=== PATIENT | male | born 1960 | race Caucasian/White ===

== ENCOUNTER 2017-03-27 10:26 | Day surgery (SDC) | payer BC ==
[2017-03-27] MEDS ORDERED: Sodium Chloride 0.9% 1,000 ML IV SCH (10:30)
[2017-03-27] MEDS ORDERED: Sodium Chloride 0.9% 5 ML Syringe FLUSH PRN (10:30)
[2017-03-27] MEDS ORDERED: fentaNYL 100 MCG/2 ML SDV ONE (10:33)
[2017-03-27] MEDS ORDERED: Midazolam 1 MG/ML 2 ML SDV ONE (10:33)
[2017-03-27] MEDS ORDERED: Propofol 200 MG/20 ML SDV ONE ×2 (10:34→10:51)
[2017-03-27] MEDS ORDERED: fentaNYL 100 MCG/2 ML SDV IV ONE (11:33)
[2017-03-27] MEDS ORDERED: Midazolam 1 MG/ML 2 ML SDV IV ONE (11:33)
[2017-03-27] MEDS ORDERED: Propofol 200 MG/20 ML SDV IV ONE (11:33)
--- NOTE | 2017-03-27 11:36 | PCM.PN ---
- General Info Date of Service: 03/27/17 - Review of Systems Systems Review Comment:: 56 y/o male with history of Gastric Bypass has been having symptoms of rectal bleeding and is referred for colonoscopy. He has a family history of colon cancer. He is medically stable to proceed with no recent change to his health status. He has also been having some symptoms of abdominal pain and some vomiting. Abdomen soft without distnetion on exam today. I have discussed the proposed colonoscopy with the patient. He understands indications and risks and he agrees to proceed accepting risks. - Patient Data Vitals - Most Recent: Last Vital Signs Temp 97.5 F 03/27/17 10:50 Pulse 74 03/27/17 10:50 Resp 16 03/27/17 10:50 BP 138/94 H 03/27/17 10:50 Pulse Ox 94 L 03/27/17 10:50 Weight - Most Recent: 142.882 kg Lab Results Last 24 Hours: Laboratory Results - last 24 hr 03/27/17 Range/Units 10:54 POC Glucose 127 H (74-106) mg/dl Med Orders - Current: Current Medications Sodium Chloride (Normal Saline) 1,000 mls @ 50 mls/hr IV ASDIRECTED KASIA Sodium Chloride (Syrex Flush) 5 ml FLUSH Q8HR PRN PRN Reason: Keep Vein Open - Problem List Review Problem List Initiated/Reviewed/Updated: Yes - My Orders Last 24 Hours: My Active Orders 03/27/17 10:30 Blood Glucose Check, Bedside [RC] ONETIME Patient to Empty Bladder [RC] ASDIRECTED Peripheral IV Care [RC] . DIRECTED Verify Patient Consent Obtain [RC] ASDIRECTED Sodium Chloride 0.9% [Normal Saline] 1,000 ml IV ASDIRECTED Sodium Chloride 0.9% [Syrex Flush] 5 ml FLUSH Q8HR PRN Peripheral IV Insertion Adult [OM.PC] Routine 03/27/17 Breakfast Nothing Per Oral Diet [DIET] - Assessment Assessment:: Rectal bleeding Family history of colon cancer - Plan Plan:: Colonoscopy
--- NOTE | 2017-03-27 12:23 | PCM.OPNOTE ---
- General Post-Op/Procedure Note Date of Surgery/Procedure: 03/27/17 Operative Procedure(s): Colonoscopy Findings: Internal Hemorrhoids but colon otherwise normal as viewed Pre Op Diagnosis: Rectal Bleeding Post-Op Diagnosis: Hemorrhoids Anesthesia Technique: MAC Primary Surgeon: Willie Miller Pathology: none Output, Urine Amount: 0 EBL in mLs: 0 Complications: None Condition: Good
[2017-03-27] MEDS ORDERED: Iopamidol 612 MG/ML 75 ML Bottle IV ONE (14:59)
[2017-03-27] MEDS ORDERED: Sodium Chloride 0.9% 50 ML SDV FLUSH SCH (15:00)
[2017-03-27 15:28] VITALS: BP 121/83
--- NOTE | 2017-03-27 20:05 | OR ---
DATE OF SURGERY: 03/27/2017 SURGEON: Willie Miller MD OPERATING SURGEON: Willie Miller M.D. REFERRING PROVIDER: Katy Cano M.D. PREOPERATIVE DIAGNOSIS: Rectal bleeding. POSTOPERATIVE DIAGNOSIS: Internal hemorrhoids. OPERATION PERFORMED: Colonoscopy. INDICATIONS FOR SURGERY: This 56-year-old male has been having some intermittent episodes of rectal bleeding. He also has been having some abdominal pain. He is referred for colonoscopy. FINDINGS: The patient has moderate-sized internal hemorrhoids. There was a mild degree of irritation. He has those hemorrhoids, although there is no active bleeding seen at this time. His colon otherwise appears normal as visualized. His prep is less than optimal on the right side, but it was felt that adequate visualization was able to be achieved to rule out significant lesions. No polyps or other possible bleeding sites were seen. PROCEDURE: The patient was taken to the operating room. He was given intravenous sedation and with him in the left lateral decubitus position, digital rectal exam was performed showing no rectal masses. The Olympus colonoscope was inserted into the rectum. Retroflexed examination of the rectal canal was performed. The scope was then carefully advanced under direct visualization through the entire length of the colon until the cecum was reached. The cecum was able to be visualized. This did require hand pressure and moving the patient into the supine position, but with these maneuvers, cecum was able to be seen. After examining the cecum, the scope was slowly withdrawn sequentially re-examining the colonic segments until the entire colon and rectum had been fully examined. The scope was then removed, and the patient was taken from the operating room in satisfactory condition. ESTIMATED BLOOD LOSS: Zero. COMPLICATIONS: None. PROGNOSIS: Good. /[id number]/MODL
== END 2017-03-27 14:30 | disposition home or self-care (01) ==
LOC: KA.SDS 10:26
PROVIDERS: ATTEND Surgery
DX: K64.8 Other hemorrhoids (principal); F41.9 Anxiety disorder, unspecified; F32.9 Major depressive disorder, single episode, unspecified; I10 Essential (primary) hypertension; E11.9 Type 2 diabetes mellitus without complications; Z79.899 Other long term (current) drug therapy; Z79.84 Long term (current) use of oral hypoglycemic drugs; Z98.84 Bariatric surgery status; Z98.890 Other specified postprocedural states
CPT/HCPCS: 45378; 74177; 82962; J2250; J2704; J3010; J7030; Q9967

== ENCOUNTER 2020-05-26 10:03 | Inpatient (IN) | payer BC ==
[2020-05-26 10:50] LABS: ANION GAP 12.6 mmol/L (5-15); CHLORIDE,CL 98 mmol/L (98-115); SODIUM,NA 133 mmol/L (136-145)
[2020-05-26] MEDS ORDERED: Iopamidol 755 Mg/ML 100 ML Bottle IV ONE (11:56)
[2020-05-26] MEDS ORDERED: Diatrizoate Meglumine/Diatrizoate Sodium 37% 30 ML Bottle PO ONE (11:56)
[2020-05-26] MEDS: Sodium Chloride 0.9% 50 ML IV SCH ×3 (12:00→14:47)
--- NOTE | 2020-05-26 12:38 | CT ---
[id number] CT/CT Abdomen Pelvis W IV EXAM: CT Abdomen Pelvis W IV CLINICAL DATA: OTHER INJURY OF UNSPECIFIED BODY REGION, INITIAL COMPARISON STUDY: Multiple priors, most recent from May 11, 2020. FINDINGS: Lung bases are clear. Cholelithiasis. No evidence of acute cholecystitis. 16mm peripherally enhancing hypodense lesion in the posterior right hepatic lobe (series 2 image 31). This was seen on numerous examinations dating to 2013. Similar enhancement pattern is seen on examination from March 2017. Findings are most consistent with cavernous hemangioma, given its stability over the imaging interval. Postsurgical change in the ventral abdominal wall consistent with sequela of what appears to be recent hernia repair that was seen on the prior examination. Findings include edema and soft tissue emphysema in the anterior subcutaneous soft tissues and muscular abdominal wall. No evidence of abscess, viscus perforation, or other complicated features at this time. No evidence of recurrent herniation. No bowel obstruction or inflammation. Appendix is normal. IMPRESSION: Postsurgical change from ventral abdominal wall hernia repair, described in detail above. No evidence of recurrent herniation other complicated features at this time. Sedrick Ontiveros MD 05/26/20 [id number] Thank you for allowing us to participate in the care of your patient.
[2020-05-26] MEDS ORDERED: Ondansetron 4 MG Tab.DIS PO PRN (13:20)
[2020-05-26] MEDS: Ertapenem 1 GM in Sodium Chloride 0.9% 50 ML IV SCH (14:47)
[2020-05-26] MEDS ORDERED: ALPRAZolam 0.25 MG Tab PO PRN (16:01)
[2020-05-26] MEDS: oxyCODONE 5 MG Tab PO PRN (20:56)
[2020-05-26] MEDS: Triamcinolone Acetonide 0.1% Crm 15 GM Tube TOP SCH ×2 (20:57→21:02)
[2020-05-26] MEDS: amLODIPine 5 MG Tab PO SCH (21:02)
[2020-05-27] MEDS ORDERED: Acetaminophen 325 MG Tab PO PRN (02:50)
[2020-05-27] MEDS: Citalopram 20 MG Tab PO SCH (08:08)
[2020-05-27] MEDS: Multivitamins with Minerals/Iron/Folic Acid/Lycopene Tab PO SCH (08:08)
[2020-05-27] MEDS: Ferrous Sulfate 325 MG Tab PO SCH (08:08)
[2020-05-27] MEDS: Aspirin 81 MG Tab.EC PO SCH (08:08)
[2020-05-27] MEDS: Triamcinolone Acetonide 0.1% Crm 15 GM Tube TOP SCH ×3 (08:12→20:49)
[2020-05-27] MEDS: Sodium Chloride 0.9% 50 ML IV SCH (08:29)
[2020-05-27 08:30] LABS: ANION GAP 15.2 mmol/L (5-15); CHLORIDE,CL 98 mmol/L (98-115); SODIUM,NA 135 mmol/L (136-145)
[2020-05-27] MEDS: Ertapenem 1 GM in Sodium Chloride 0.9% 50 ML IV SCH (08:31)
[2020-05-27] MEDS: amLODIPine 5 MG Tab PO SCH (09:16)
[2020-05-27] MEDS: Lisinopril 10 MG Tab PO SCH (09:17)
--- NOTE | 2020-05-27 11:01 | PCM.PN ---
- General Info Date of Service: 05/27/20 Admission Dx/Problem (Free Text): Post-op wound drainage. - Review of Systems Systems Review Comment:: Oscar is seen today on inpatient rounds. He was admitted from [facility] clinic on 05/26 with drainage from his abdomen where his drain had been pulled on 05/24. He had surgery to repair a mesh failure from a ventral hernia repair on 05/17 at [facility] and was discharged on 05/19. At the time his drain was pulled on 05/24 he had 15 mL of serosanguonous fluid in his drain over the past 48 hours and so it was appropriate to remove. He notes he had very little drainage from his abdomen on 05/25 but the morning of 05/26 he went to walk with his daughters to school and noted that the bandage from the AM was soaked and "even more has drained on the drive over here". He has no fevers but has had some "hot flashes that don't last long". He has pain and is very tender around the site. He does not think the drainage smells. The are was cultured. I was able to express quite a large amount of what looked like purulent material in the clinic on 05/26. I subsequently got CBC, CMP, lactic acid as well as CT Abdomen/Pelvis to evaluated for intraabdominal abscess. CBC had a leukocytosis of 13,000 with a slight left shift. His WBC is usually around 4,000 - 5,000 at baseline. Lactic acid was negative. CMP showed an elevated bilirubin at 2.8 and he typically has a bilirubin of 1.4. He was afebrile but his BP was on the low side. He has not had much of an appetite. CT was negative for intraabdominal process. He was admitted inpatient status and was started on ertapenem 1 gram IV q 24 hours. Overnight he was hypotensive and so his amlodipine and lisinopril have been held. He states his pain is better today. He is on oxycodone 5 mg PO q 6 hours PRN for pain. He states he is still getting quite a bit of drainage. He remains afebrile. WBC improved today, no longer a left shift. Bilirubin decreased to 2.6 from 2.8. - Patient Data Vitals - Most Recent: Last Vital Signs Temp 97.8 F 05/27/20 10:53 Pulse 61 05/27/20 10:53 Resp 19 05/27/20 10:53 BP 110/70 05/27/20 10:53 Pulse Ox 96 05/27/20 10:53 Weight - Most Recent: 281 lb I&O - Last 24 Hours: Intake & Output 05/26/20 05/27/20 05/27/20 22:59 06:59 14:59 Intake Total 150 120 Balance 150 120 Lab Results Last 24 Hours: Laboratory Results - last 24 hr 05/26/20 05/26/20 05/26/20 Range/Units 10:15 11:10 13:00 WBC (5.00-10.00) 10^3/uL RBC (4.50-6.00) 10^6/uL Hgb (13.0-17.0) g/dL Hct (40.0-52.0) % MCV (82.0-92.0) fL MCH (27.0-31.0) pg MCHC (32.0-36.0) g/dL RDW (11.5-14.5) % Plt Count (150-400) 10^3/uL MPV (7.4-10.4) fL Add Manual Diff Neutrophils % (Manual) (50-70) % Lymphocytes % (Manual) (20-40) % Monocytes % (Manual) (2-8) % Eosinophils % (Manual) (1-3) % Absolute Neutrophils Lymphocytes # (Manual) Monocytes # (Manual) Eosinophils # (Manual) Sodium 133 L (136-145) mmol/L Potassium 4.1 (3.3-5.3) mmol/L Chloride 98 (98-115) mmol/L Carbon Dioxide 26.5 (21.0-32.0) mmol/L Anion Gap 12.6 (5-15) mmol/L BUN 14 (6-25) mg/dL Creatinine 1.03 (0.51-1.17) mg/dL Est Cr Clr Drug Dosing TNP Estimated GFR (MDRD) > 60 mL/min Glucose 120 H (75 - 99) mg/dL Lactic Acid 1.1 (0.4-2.0) mmol/L Calcium 8.8 (8.7-10.3) mg/dL Total Bilirubin 2.8 H (0.2-1.0) mg/dL Direct Bilirubin (0.0-0.2) mg/dL Indirect Bilirubin mg/dL AST 41 H (15-37) U/L ALT 17 (12-78) U/L Alkaline Phosphatase 81 (46-116) IU/L Total Protein 7.6 (6.4-8.2) g/dL Albumin 3.04 (3.00-4.80) g/dL Globulin Albumin/Globulin Ratio SARS CoV-2 RNA Rapid RIGOBERTO Negative (NEGATIVE) 05/27/20 05/27/20 Range/Units 07:13 07:13 WBC 9.29 (5.00-10.00) 10^3/uL RBC 3.83 L (4.50-6.00) 10^6/uL Hgb 12.2 L (13.0-17.0) g/dL Hct 35.6 L (40.0-52.0) % MCV 93.0 H (82.0-92.0) fL MCH 31.9 H (27.0-31.0) pg MCHC 34.3 (32.0-36.0) g/dL RDW 11.8 (11.5-14.5) % Plt Count 263 (150-400) 10^3/uL MPV 9.5 (7.4-10.4) fL Add Manual Diff Yes Neutrophils % (Manual) 70 (50-70) % Lymphocytes % (Manual) 16 L (20-40) % Monocytes % (Manual) 1 L (2-8) % Eosinophils % (Manual) 13 H (1-3) % Absolute Neutrophils 6.50 Lymphocytes # (Manual) 1.49 Monocytes # (Manual) 0.09 Eosinophils # (Manual) 1.21 Sodium 135 L (136-145) mmol/L Potassium 4.6 (3.3-5.3) mmol/L Chloride 98 (98-115) mmol/L Carbon Dioxide 26.4 (21.0-32.0) mmol/L Anion Gap 15.2 H (5-15) mmol/L BUN 13 (6-25) mg/dL Creatinine 0.94 (0.51-1.17) mg/dL Est Cr Clr Drug Dosing 99.59 Estimated GFR (MDRD) > 60 mL/min Glucose 100 H (75 - 99) mg/dL Lactic Acid (0.4-2.0) mmol/L Calcium 8.3 L (8.7-10.3) mg/dL Total Bilirubin 2.6 H (0.2-1.0) mg/dL Direct Bilirubin 0.8 H* (0.0-0.2) mg/dL Indirect Bilirubin 1.8 mg/dL AST 42 H (15-37) U/L ALT 17 (12-78) U/L Alkaline Phosphatase 74 (46-116) IU/L Total Protein 7.3 (6.4-8.2) g/dL Albumin 2.78 L (3.00-4.80) g/dL Globulin 4.52 Albumin/Globulin Ratio 0.61 SARS CoV-2 RNA Rapid RIGOBERTO (NEGATIVE) Anders Results Last 24 Hours: Microbiology 05/26/20 10:02 Gram Stain - Final Drainage - Abdomen Med Orders - Current: Current Medications Acetaminophen (Tylenol) 650 mg PO Q4H PRN PRN Reason: Headache/Pain Last Admin: 05/27/20 03:09 Dose: 650 mg Documented by: Alprazolam (Xanax) 0.5 mg PO DAILY PRN PRN Reason: Anxiety Amlodipine Besylate (Norvasc) 5 mg PO BID [facility] Last Admin: 05/27/20 09:16 Dose: Not Given Documented by: Aspirin (Halfprin) 81 mg PO DAILY [facility] Last Admin: 05/27/20 08:08 Dose: 81 mg Documented by: Citalopram Hydrobromide (Celexa) 40 mg PO DAILY [facility] Last Admin: 05/27/20 08:08 Dose: 40 mg Documented by: Ferrous Sulfate (Ferrous Sulfate) 325 mg PO DAILY [facility] Last Admin: 05/27/20 08:08 Dose: 325 mg Documented by: Sodium Chloride (Normal Saline) 50 mls @ 200 mls/hr IV ASDIRECTED [facility] Last Admin: 05/27/20 08:29 Dose: 200 mls/hr Documented by: Ertapenem 1 gm/ Sodium (Chloride) 50 mls @ 100 mls/hr IV DAILY [facility] Last Admin: 05/27/20 08:31 Dose: 100 mls/hr Documented by: Lisinopril (Prinivil) 10 mg PO DAILY [facility] Last Admin: 05/27/20 09:17 Dose: Not Given Documented by: Metformin HCl (Glucophage Xr) 500 mg PO DAILY [facility] Multivitamins/Minerals (Centrum) 1 tab PO DAILY [facility] Last Admin: 05/27/20 08:08 Dose: 1 tab Documented by: Ondansetron HCl (Zofran Odt) 4 mg PO Q6H PRN PRN Reason: nausea, able to take PO Oxycodone HCl (Oxycodone) 5 mg PO Q6HR PRN PRN Reason: Pain Last Admin: 05/26/20 20:56 Dose: 5 mg Documented by: Senna/Docusate Sodium (Senna Plus) 1 tab PO BID PRN PRN Reason: Constipation Triamcinolone Acetonide (Triamcinolone Acetonide 0.1% Crm) 0 gm TOP TID [facility] Last Admin: 05/27/20 08:12 Dose: 1 applic Documented by: Discontinued Medications Diatrizoate Meglum/Diatrizoate Sod (Gastrografin 37%) 30 ml PO ONETIME ONE Stop: 05/26/20 11:57 Last Admin: 05/26/20 12:41 Dose: 30 ml Documented by: Iopamidol (Isovue-370 (76%)) 100 ml IV ONETIME ONE Stop: 05/26/20 11:57 Last Admin: 05/26/20 12:41 Dose: 100 ml Documented by: - Exam General: Alert, Oriented, Cooperative, No Acute Distress Lungs: Clear to Auscultation, Normal Respiratory Effort Cardiovascular: Regular Rate, Regular Rhythm, No Murmurs GI/Abdominal Exam: Normal Bowel Sounds, Soft, Tender Extremities: No Pedal Edema Skin: Other (Rash on right upper chest is improving.) Sepsis Event Note - Evaluation Sepsis Screening Result: No Definite Risk - Focused Exam Vital Signs: Vital Signs Temp Pulse Resp BP BP Pulse Ox 05/27/20 10:53 97.8 F 61 19 110/70 96 05/27/20 09:17 104/72 05/27/20 09:16 104/72 05/27/20 06:03 97.0 F 58 L 18 108/71 94 L 05/27/20 02:58 97.4 F 69 18 105/71 92 L - Problem List Review Problem List Initiated/Reviewed/Updated: Yes - My Orders Last 24 Hours: My Active Orders 05/26/20 10:02 MISCELLANEOUS CULT [MREF] Routine 05/26/20 12:00 Sodium Chloride 0.9% [Normal Saline] 50 ml IV ASDIRECTED 05/26/20 13:20 Patient Status [ADT] Routine Oxygen Therapy [RC] PRN Up ad [place] [RC] ASDIRECTED VTE/DVT Education [RC] DAILY Vital Signs [RC] 03,07,11,15,, Docusate Sodium/Sennosides [Senna Plus] 1 tab PO BID PRN Ondansetron [Zofran ODT] 4 mg PO Q6H PRN Blood Culture x2 Reflex Set [OM.PC] Stat Resuscitation Status Routine 05/26/20 13:30 Ertapenem [INVanz] 1 gm Sodium Chloride 0.9% [Normal Saline] 50 ml IV DAILY 05/26/20 14:15 CULTURE BLOOD [BC] Stat 05/26/20 14:20 CULTURE BLOOD [BC] Stat 05/26/20 16:01 ALPRAZolam [Xanax] 0.5 mg PO DAILY PRN oxyCODONE 5 mg PO Q6HR PRN 05/26/20 Dinner [employer] Diet [DIET] 05/26/20 19:00 Triamcinolone Acetonide [Triamcinolone Acetonide 0.1% Crm] 0 gm TOP TID 05/26/20 21:00 amLODIPine [Norvasc] 5 mg PO BID 05/27/20 02:50 Acetaminophen [TylenoL] 650 mg PO Q4H PRN 05/27/20 09:00 Aspirin [Halfprin] 81 mg PO DAILY Citalopram [Celexa] 40 mg PO DAILY FA/Lycopene/Lut/MV,Ca,Iron,Min [Centrum] 1 tab PO DAILY Ferrous Sulfate 325 mg PO DAILY lisinopriL [Prinivil] 10 mg PO DAILY 05/28/20 05:11 BASIC METABOLIC PANEL,BMP [CHEM] AM CBC WITH AUTO DIFF [HEME] AM HEPATIC FUNCTION PANEL,HFP [CHEM] AM 05/28/20 13:00 metFORMIN [Glucophage XR] 500 mg PO DAILY 05/29/20 05:11 BASIC METABOLIC PANEL,BMP [CHEM] AM CBC WITH AUTO DIFF [HEME] AM HEPATIC FUNCTION PANEL,HFP [CHEM] AM 05/30/20 05:11 BASIC METABOLIC PANEL,BMP [CHEM] AM CBC WITH AUTO DIFF [HEME] AM HEPATIC FUNCTION PANEL,HFP [CHEM] AM 05/31/20 05:11 BASIC METABOLIC PANEL,BMP [CHEM] AM CBC WITH AUTO DIFF [HEME] AM HEPATIC FUNCTION PANEL,HFP [CHEM] AM - Assessment Assessment:: Post-op drainage from drain site that was pulled 05/24/2020 Leukocytosis Elevated bilirubin Post-operative abdominal pain Anxiety Depression DM type 2 HTN Hx gout Eczema Iron deficiency anemia - Plan Plan:: Post-op drainage from drain site that was pulled 05/24/2020 - Wound culture pending - Continue ertapenem 1 gram IV daily - Daily CBC Leukocytosis - Resolved - Daily CBC Elevated bilirubin - Slowly trending down - Daily hepatic panel Post-operative abdominal pain - Continue oxycodone 5 mg PO q 6 hours PRN Anxiety - Continue alprazolam 0.5 mg PO daily PRN Depression - Continue citalopram 40 mg PO daily DM type 2 - Metformin ER 500 mg PO daily on hold until 05/29 due to contrast on 05/26 - Diabetic diet HTN - BP has actually been on the low side - Hold amlodipine 5 mg PO BID - Hold lisinopril 10 mg PO daily Hx gout Eczema - Continue triamcinolone 0.1% cream topically to affected area TID PRN until resolved Iron deficiency anemia - Continue ferrous sulfate 325 mg 1 tab PO daily
[2020-05-27] MEDS: oxyCODONE 5 MG Tab PO PRN ×2 (12:32→21:26)
[2020-05-28] MEDS: Ferrous Sulfate 325 MG Tab PO SCH (08:07)
[2020-05-28] MEDS: Multivitamins with Minerals/Iron/Folic Acid/Lycopene Tab PO SCH (08:07)
[2020-05-28] MEDS: Citalopram 20 MG Tab PO SCH (08:07)
[2020-05-28] MEDS: Aspirin 81 MG Tab.EC PO SCH (08:08)
[2020-05-28 08:49] LABS: ANION GAP 15.2 mmol/L (5-15); CHLORIDE,CL 98 mmol/L (98-115); SODIUM,NA 136 mmol/L (136-145)
--- NOTE | 2020-05-28 09:12 | PCM.PN ---
- General Info Date of Service: 05/28/20 Admission Dx/Problem (Free Text): Post-op wound drainage. - Review of Systems Systems Review Comment:: Oscar is seen today on inpatient rounds. He was admitted on 05/26/2020 from clinic with drainage from the abdominal site where his drain was pulled on 05/24/2020. This area was cultured and he was started on ertapenem 1 gram IV daily. Culture result from 05/26 is growing Staph aureus on 05/27 and so vancomycin was added to his regimen. He notes his drainage is significant less from last evening and this morning. His pain is improving. His WBC has normalized with no left shift. He has remained afebrile. He had an elevated bilirubin of 2.8 at admission and this is now down to 1.8. Overall he is feeling better. Of note, CT abdomen/pelvis did not show any evidence of abscess although culture is positive. - Patient Data Vitals - Most Recent: Last Vital Signs Temp 97.1 F 05/28/20 05:58 Pulse 65 05/28/20 05:58 Resp 18 05/28/20 05:58 BP 125/73 05/28/20 05:58 Pulse Ox 94 L 05/28/20 05:58 Weight - Most Recent: 281 lb I&O - Last 24 Hours: Intake & Output 05/27/20 05/28/20 05/28/20 22:59 06:59 14:59 Intake Total 200 445 Balance 200 445 Lab Results Last 24 Hours: Laboratory Results - last 24 hr 05/28/20 05/28/20 Range/Units 07:15 07:15 WBC 6.06 (5.00-10.00) 10^3/uL RBC 3.91 L (4.50-6.00) 10^6/uL Hgb 12.2 L (13.0-17.0) g/dL Hct 35.8 L (40.0-52.0) % MCV 91.6 (82.0-92.0) fL MCH 31.2 H (27.0-31.0) pg MCHC 34.1 (32.0-36.0) g/dL RDW 11.5 (11.5-14.5) % Plt Count 295 (150-400) 10^3/uL MPV 9.1 (7.4-10.4) fL Add Manual Diff Yes Sodium 136 (136-145) mmol/L Potassium 4.5 (3.3-5.3) mmol/L Chloride 98 (98-115) mmol/L Carbon Dioxide 27.3 (21.0-32.0) mmol/L Anion Gap 15.2 H (5-15) mmol/L BUN 11 (6-25) mg/dL Creatinine 0.89 (0.51-1.17) mg/dL Est Cr Clr Drug Dosing 105.19 mL/min Estimated GFR (MDRD) > 60 mL/min Glucose 103 H (75 - 99) mg/dL Calcium 8.6 L (8.7-10.3) mg/dL Total Bilirubin 1.8 H (0.2-1.0) mg/dL Direct Bilirubin 0.5 H (0.0-0.2) mg/dL Indirect Bilirubin 1.3 mg/dL AST 45 H (15-37) U/L ALT 20 (12-78) U/L Alkaline Phosphatase 74 (46-116) IU/L Total Protein 7.2 (6.4-8.2) g/dL Albumin 2.88 L (3.00-4.80) g/dL Globulin 4.32 Albumin/Globulin Ratio 0.66 Anders Results Last 24 Hours: Microbiology 05/26/20 14:20 Aerobic Blood Culture - Preliminary Blood - Venous - Lab Draw NO GROWTH AFTER 1 DAY Anaerobic Blood Culture - Preliminary NO GROWTH AFTER 1 DAY 05/26/20 14:15 Aerobic Blood Culture - Preliminary Blood - Venous NO GROWTH AFTER 1 DAY Anaerobic Blood Culture - Preliminary NO GROWTH AFTER 1 DAY 05/26/20 10:02 Miscellaneous Reference Culture - Preliminary Drainage - Abdomen Staphylococcus Aureus Gram Stain - Final Med Orders - Current: Current Medications Acetaminophen (Tylenol) 650 mg PO Q4H PRN PRN Reason: Headache/Pain Last Admin: 05/27/20 03:09 Dose: 650 mg Documented by: Alprazolam (Xanax) 0.5 mg PO DAILY PRN PRN Reason: Anxiety Amlodipine Besylate (Norvasc) 5 mg PO BID [facility] Last Admin: 05/27/20 09:16 Dose: Not Given Documented by: Aspirin (Halfprin) 81 mg PO DAILY [facility] Last Admin: 05/28/20 08:08 Dose: 81 mg Documented by: Citalopram Hydrobromide (Celexa) 40 mg PO DAILY [facility] Last Admin: 05/28/20 08:07 Dose: 40 mg Documented by: Ferrous Sulfate (Ferrous Sulfate) 325 mg PO DAILY [facility] Last Admin: 05/28/20 08:07 Dose: 325 mg Documented by: Sodium Chloride (Normal Saline) 50 mls @ 200 mls/hr IV ASDIRECTED [facility] Last Admin: 05/27/20 08:29 Dose: 200 mls/hr Documented by: Ertapenem 1 gm/ Sodium (Chloride) 50 mls @ 100 mls/hr IV DAILY [facility] Last Admin: 05/27/20 08:31 Dose: 100 mls/hr Documented by: Vancomycin HCl 2 gm/ Sodium (Chloride) 250 mls @ 100 mls/hr IV Q12H [facility] Last Admin: 05/28/20 06:04 Dose: 100 mls/hr Documented by: Lisinopril (Prinivil) 10 mg PO DAILY [facility] Last Admin: 05/27/20 09:17 Dose: Not Given Documented by: Metformin HCl (Glucophage Xr) 500 mg PO DAILY [facility] Multivitamins/Minerals (Centrum) 1 tab PO DAILY [facility] Last Admin: 05/28/20 08:07 Dose: 1 tab Documented by: Ondansetron HCl (Zofran Odt) 4 mg PO Q6H PRN PRN Reason: nausea, able to take PO Oxycodone HCl (Oxycodone) 5 mg PO Q6HR PRN PRN Reason: Pain Last Admin: 05/27/20 21:26 Dose: 5 mg Documented by: Senna/Docusate Sodium (Senna Plus) 1 tab PO BID PRN PRN Reason: Constipation Triamcinolone Acetonide (Triamcinolone Acetonide 0.1% Crm) 0 gm TOP TID [facility] Last Admin: 05/27/20 20:49 Dose: 1 applic Documented by: Vancomycin HCl (Pharmacy To Dose - Vancomycin) 1 dose .XX DAILY [facility] Discontinued Medications Diatrizoate Meglum/Diatrizoate Sod (Gastrografin 37%) 30 ml PO ONETIME ONE Stop: 05/26/20 11:57 Last Admin: 05/26/20 12:41 Dose: 30 ml Documented by: Iopamidol (Isovue-370 (76%)) 100 ml IV ONETIME ONE Stop: 05/26/20 11:57 Last Admin: 05/26/20 12:41 Dose: 100 ml Documented by: - Exam General: Alert, Oriented, Cooperative, No Acute Distress Lungs: Clear to Auscultation, Normal Respiratory Effort Cardiovascular: Regular Rate, Regular Rhythm, No Murmurs GI/Abdominal Exam: Normal Bowel Sounds Extremities: No Pedal Edema Sepsis Event Note - Evaluation Sepsis Screening Result: No Definite Risk - Focused Exam Vital Signs: Vital Signs Temp Pulse Resp BP Pulse Ox 05/28/20 05:58 97.1 F 65 18 125/73 94 L 05/28/20 03:00 97.2 F 62 18 118/74 93 L 05/27/20 22:20 97.4 F 63 18 111/72 96 - Problem List Review Problem List Initiated/Reviewed/Updated: Yes - My Orders Last 24 Hours: My Active Orders 05/27/20 09:00 Aspirin [Halfprin] 81 mg PO DAILY Citalopram [Celexa] 40 mg PO DAILY FA/Lycopene/Lut/MV,Ca,Iron,Min [Centrum] 1 tab PO DAILY Ferrous Sulfate 325 mg PO DAILY lisinopriL [Prinivil] 10 mg PO DAILY 05/27/20 17:00 Pharmacy to Dose - Vancomycin 1 dose .XX DAILY 05/27/20 17:30 Vancomycin 2 gm Sodium Chloride 0.9% [Normal Saline] 250 ml IV Q12H 05/27/20 Dinner Regular Diet [DIET] 05/28/20 07:15 CBC WITH AUTO DIFF [HEME] AM MANUAL DIFFERENTIAL QA/NC [HEME] Routine 05/28/20 13:00 metFORMIN [Glucophage XR] 500 mg PO DAILY 05/29/20 05:11 BASIC METABOLIC PANEL,BMP [CHEM] AM CBC WITH AUTO DIFF [HEME] AM HEPATIC FUNCTION PANEL,HFP [CHEM] AM 05/29/20 17:00 VANCOMYCIN TROUGH [CHEM] Timed 05/30/20 05:11 BASIC METABOLIC PANEL,BMP [CHEM] AM CBC WITH AUTO DIFF [HEME] AM HEPATIC FUNCTION PANEL,HFP [CHEM] AM 05/31/20 05:11 BASIC METABOLIC PANEL,BMP [CHEM] AM CBC WITH AUTO DIFF [HEME] AM HEPATIC FUNCTION PANEL,HFP [CHEM] AM - Assessment Assessment:: Post-op drainage from drain site that was pulled 05/24/2020 Leukocytosis Elevated bilirubin Post-operative abdominal pain Anxiety Depression DM type 2 HTN Hx gout Eczema Iron deficiency anemia - Plan Plan:: Post-op drainage from drain site that was pulled 05/24/2020 - Wound culture growing Staph aureus (05/27) - Continue ertapenem 1 gram IV daily - Vancomycin, pharm to dose, started 05/27 - Daily CBC Leukocytosis - Resolved - Daily CBC Elevated bilirubin - Slowly trending down, 1.8 on 05/28 - Daily hepatic panel Post-operative abdominal pain - Continue oxycodone 5 mg PO q 6 hours PRN Anxiety - Continue alprazolam 0.5 mg PO daily PRN Depression - Continue citalopram 40 mg PO daily DM type 2 - Metformin ER 500 mg PO daily on hold until 05/29 due to contrast on 05/26 - Regular diet, patient declined diabetic diet HTN - BP has actually been on the low side - Hold amlodipine 5 mg PO BID - Hold lisinopril 10 mg PO daily Hx gout Eczema - Continue triamcinolone 0.1% cream topically to affected area TID PRN until resolved Iron deficiency anemia - Continue ferrous sulfate 325 mg 1 tab PO daily
[2020-05-28] MEDS: Ertapenem 1 GM in Sodium Chloride 0.9% 50 ML IV SCH (09:46)
[2020-05-28] MEDS: Triamcinolone Acetonide 0.1% Crm 15 GM Tube TOP SCH ×3 (10:00→20:25)
[2020-05-28] MEDS: Sodium Chloride 0.9% 50 ML IV SCH (10:01)
[2020-05-28] MEDS: metFORMIN 500 MG Tab.ER PO SCH (18:08)
[2020-05-29] MEDS: Ferrous Sulfate 325 MG Tab PO SCH (08:26)
[2020-05-29] MEDS: metFORMIN 500 MG Tab.ER PO SCH (08:26)
[2020-05-29] MEDS: Multivitamins with Minerals/Iron/Folic Acid/Lycopene Tab PO SCH (08:26)
[2020-05-29] MEDS: Aspirin 81 MG Tab.EC PO SCH (08:26)
[2020-05-29] MEDS: Citalopram 20 MG Tab PO SCH (08:26)
[2020-05-29] MEDS: amLODIPine 5 MG Tab PO SCH ×2 (08:27→20:48)
[2020-05-29] MEDS: Lisinopril 10 MG Tab PO SCH (08:28)
[2020-05-29] MEDS: Ertapenem 1 GM in Sodium Chloride 0.9% 50 ML IV SCH (08:28)
[2020-05-29] MEDS: Triamcinolone Acetonide 0.1% Crm 15 GM Tube TOP SCH ×2 (08:35→14:26)
[2020-05-29] MEDS: Sodium Chloride 0.9% 50 ML IV SCH (08:38)
[2020-05-29 08:39] LABS: ANION GAP 14.6 mmol/L (5-15); CHLORIDE,CL 101 mmol/L (98-115); SODIUM,NA 136 mmol/L (136-145)
--- NOTE | 2020-05-29 10:51 | PCM.PN ---
- General Info Date of Service: 05/29/20 Admission Dx/Problem (Free Text): Post-op wound drainage. - Review of Systems Systems Review Comment:: Oscar is seen today on inpatient rounds. He was admitted on 05/26/2020 from clinic with drainage from the abdominal site where his drain was pulled on 05/24/2020. This area was cultured and he was started on ertapenem 1 gram IV daily. Culture result from 05/26 is growing Staph aureus on 05/27 and so vancomycin was added to his regimen. Culture ID is back today 05/29 and it is MSSA so vancomycin will be discontinued. He notes his drainage is significant less from last evening and this morning. He states he is actually no longer h aving abdominal pain. His WBC has normalized with no left shift. He has remained afebrile. He had an elevated bilirubin of 2.8 at admission and this is now down to 1.1 Overall he is feeling better. Of note, CT abdomen/pelvis did not show any evidence of abscess although culture is positive. His appetite is improving although he does not like the food at the hospital. - Patient Data Vitals - Most Recent: Last Vital Signs Temp 96.9 F 05/29/20 06:37 Pulse 54 L 05/29/20 06:37 Resp 20 05/29/20 06:37 BP 122/74 05/29/20 08:28 Pulse Ox 95 05/29/20 06:37 Weight - Most Recent: 281 lb I&O - Last 24 Hours: Intake & Output 05/28/20 05/29/20 05/29/20 22:59 06:59 14:59 Intake Total 540 447 Balance 540 447 Lab Results Last 24 Hours: Laboratory Results - last 24 hr 05/29/20 05/29/20 Range/Units 07:23 07:23 WBC 5.77 (5.00-10.00) 10^3/uL RBC 3.87 L (4.50-6.00) 10^6/uL Hgb 12.1 L (13.0-17.0) g/dL Hct 35.3 L (40.0-52.0) % MCV 91.2 (82.0-92.0) fL MCH 31.3 H (27.0-31.0) pg MCHC 34.3 (32.0-36.0) g/dL RDW 11.5 (11.5-14.5) % Plt Count 345 (150-400) 10^3/uL MPV 9.7 (7.4-10.4) fL Add Manual Diff Yes Neutrophils % (Manual) 48 L (50-70) % Band Neutrophils % 2 L (4-12) % Lymphocytes % (Manual) 18 L (20-40) % Monocytes % (Manual) 8 (2-8) % Eosinophils % (Manual) 24 H (1-3) % Basophils % (Manual) 0 (0-1) % Absolute Neutrophils 2.77 Band Neutrophils # 0.12 Lymphocytes # (Manual) 1.04 Monocytes # (Manual) 0.46 Eosinophils # (Manual) 1.38 Sodium 136 (136-145) mmol/L Potassium 4.2 (3.3-5.3) mmol/L Chloride 101 (98-115) mmol/L Carbon Dioxide 24.6 (21.0-32.0) mmol/L Anion Gap 14.6 (5-15) mmol/L BUN 9 (6-25) mg/dL Creatinine 0.83 (0.51-1.17) mg/dL Est Cr Clr Drug Dosing 112.79 mL/min Estimated GFR (MDRD) > 60 mL/min Glucose 108 H (75 - 99) mg/dL Calcium 8.5 L (8.7-10.3) mg/dL Total Bilirubin 1.1 H (0.2-1.0) mg/dL Direct Bilirubin 0.3 H (0.0-0.2) mg/dL Indirect Bilirubin 0.8 mg/dL AST 44 H (15-37) U/L ALT 20 (12-78) U/L Alkaline Phosphatase 73 (46-116) IU/L Total Protein 7.1 (6.4-8.2) g/dL Albumin 2.87 L (3.00-4.80) g/dL Globulin 4.23 Albumin/Globulin Ratio 0.67 Anders Results Last 24 Hours: Microbiology 05/26/20 14:20 Aerobic Blood Culture - Preliminary Blood - Venous - Lab Draw NO GROWTH AFTER 2 DAYS Anaerobic Blood Culture - Preliminary NO GROWTH AFTER 2 DAYS 05/26/20 14:15 Aerobic Blood Culture - Preliminary Blood - Venous NO GROWTH AFTER 2 DAYS Anaerobic Blood Culture - Preliminary NO GROWTH AFTER 2 DAYS 05/26/20 10:02 Miscellaneous Reference Culture - Final Drainage - Abdomen Staphylococcus Aureus Gram Stain - Final Med Orders - Current: Current Medications Acetaminophen (Tylenol) 650 mg PO Q4H PRN PRN Reason: Headache/Pain Last Admin: 05/27/20 03:09 Dose: 650 mg Documented by: Alprazolam (Xanax) 0.5 mg PO DAILY PRN PRN Reason: Anxiety Amlodipine Besylate (Norvasc) 5 mg PO BID [facility] Last Admin: 05/29/20 08:27 Dose: Not Given Documented by: Aspirin (Halfprin) 81 mg PO DAILY [facility] Last Admin: 05/29/20 08:26 Dose: 81 mg Documented by: Citalopram Hydrobromide (Celexa) 40 mg PO DAILY [facility] Last Admin: 05/29/20 08:26 Dose: 40 mg Documented by: Ferrous Sulfate (Ferrous Sulfate) 325 mg PO DAILY [facility] Last Admin: 05/29/20 08:26 Dose: 325 mg Documented by: Sodium Chloride (Normal Saline) 50 mls @ 200 mls/hr IV ASDIRECTED [facility] Last Admin: 05/29/20 08:38 Dose: 200 mls/hr Documented by: Ertapenem 1 gm/ Sodium (Chloride) 50 mls @ 100 mls/hr IV DAILY [facility] Last Admin: 05/29/20 08:28 Dose: 100 mls/hr Documented by: Vancomycin HCl 2 gm/ Sodium (Chloride) 250 mls @ 100 mls/hr IV Q12H [facility] Last Admin: 05/29/20 04:40 Dose: 100 mls/hr Documented by: Lisinopril (Prinivil) 10 mg PO DAILY [facility] Last Admin: 05/29/20 08:28 Dose: Not Given Documented by: Metformin HCl (Glucophage Xr) 500 mg PO DAILY [facility] Last Admin: 05/29/20 08:26 Dose: 500 mg Documented by: Multivitamins/Minerals (Centrum) 1 tab PO DAILY [facility] Last Admin: 05/29/20 08:26 Dose: 1 tab Documented by: Ondansetron HCl (Zofran Odt) 4 mg PO Q6H PRN PRN Reason: nausea, able to take PO Oxycodone HCl (Oxycodone) 5 mg PO Q6HR PRN PRN Reason: Pain Last Admin: 05/27/20 21:26 Dose: 5 mg Documented by: Senna/Docusate Sodium (Senna Plus) 1 tab PO BID PRN PRN Reason: Constipation Triamcinolone Acetonide (Triamcinolone Acetonide 0.1% Crm) 0 gm TOP TID [facility] Last Admin: 05/29/20 08:35 Dose: Not Given Documented by: Vancomycin HCl (Pharmacy To Dose - Vancomycin) 1 dose .XX DAILY [facility] Discontinued Medications Diatrizoate Meglum/Diatrizoate Sod (Gastrografin 37%) 30 ml PO ONETIME ONE Stop: 05/26/20 11:57 Last Admin: 05/26/20 12:41 Dose: 30 ml Documented by: Iopamidol (Isovue-370 (76%)) 100 ml IV ONETIME ONE Stop: 05/26/20 11:57 Last Admin: 05/26/20 12:41 Dose: 100 ml Documented by: - Exam General: Alert, Oriented, Cooperative, No Acute Distress Lungs: Clear to Auscultation, Normal Respiratory Effort Cardiovascular: Regular Rate, Regular Rhythm, No Murmurs GI/Abdominal Exam: Normal Bowel Sounds, Soft, Non-Tender Extremities: No Pedal Edema Skin: Other (Rash on the right chest is nearly completely resolved.) Wound/Incisions: Other (Drainage improving, still mild purulent appearing drainage from the abdominal site.) Sepsis Event Note - Evaluation Sepsis Screening Result: No Definite Risk - Focused Exam Vital Signs: Vital Signs Temp Pulse Resp BP BP BP Pulse Ox 05/29/20 08:28 122/74 05/29/20 08:27 122/74 05/29/20 06:37 96.9 F 54 L 20 119/80 95 05/29/20 03:00 98.3 F 64 16 103/65 96 - Problem List Review Problem List Initiated/Reviewed/Updated: Yes - My Orders Last 24 Hours: My Active Orders 05/28/20 13:00 metFORMIN [Glucophage XR] 500 mg PO DAILY 05/29/20 17:00 VANCOMYCIN TROUGH [CHEM] Timed 05/30/20 05:11 BASIC METABOLIC PANEL,BMP [CHEM] AM CBC WITH AUTO DIFF [HEME] AM HEPATIC FUNCTION PANEL,HFP [CHEM] AM 05/31/20 05:11 BASIC METABOLIC PANEL,BMP [CHEM] AM CBC WITH AUTO DIFF [HEME] AM HEPATIC FUNCTION PANEL,HFP [CHEM] AM - Assessment Assessment:: Post-op drainage from drain site that was pulled 05/24/2020 Leukocytosis Elevated bilirubin Post-operative abdominal pain Anxiety Depression DM type 2 HTN Hx gout Eczema Iron deficiency anemia - Plan Plan:: Post-op drainage from drain site that was pulled 05/24/2020 - Wound culture growing Staph aureus (05/27), MSSA 05/29 - Continue ertapenem 1 gram IV daily - Discontinue vancomycin (received 05/27-05/29) - Daily CBC Leukocytosis - Resolved - Daily CBC Elevated bilirubin - Slowly trending down, 1.1 on 05/29 - Daily hepatic panel Post-operative abdominal pain - Continue oxycodone 5 mg PO q 6 hours PRN Anxiety - Continue alprazolam 0.5 mg PO daily PRN Depression - Continue citalopram 40 mg PO daily DM type 2 - Metformin ER 500 mg PO daily on hold until 05/29 due to contrast on 05/26 - Regular diet, patient declined diabetic diet HTN - BP has actually been on the low side - Hold amlodipine 5 mg PO BID - Hold lisinopril 10 mg PO daily Hx gout Eczema - Continue triamcinolone 0.1% cream topically to affected area TID PRN until resolved Iron deficiency anemia - Continue ferrous sulfate 325 mg 1 tab PO daily Anticipate discharge to home on 05/30 after he receives his daily ertapenem dose. He will be discharged with doxycycline 100 mg PO BID x for an additional 9 days for a total of 14 days of antibiotics.
[2020-05-29] MEDS ORDERED: Triamcinolone Acetonide 0.1% Crm 15 GM Tube TOP PRN (14:44)
[2020-05-30 05:57] VITALS: PULSE 61
[2020-05-30 08:05] LABS: CHLORIDE,CL 100 mmol/L (98-115); SODIUM,NA 138 mmol/L (136-145)
[2020-05-30] MEDS: Aspirin 81 MG Tab.EC PO SCH (08:28)
[2020-05-30] MEDS: Multivitamins with Minerals/Iron/Folic Acid/Lycopene Tab PO SCH (08:28)
[2020-05-30] MEDS: Ferrous Sulfate 325 MG Tab PO SCH (08:28)
[2020-05-30] MEDS: metFORMIN 500 MG Tab.ER PO SCH (08:28)
[2020-05-30] MEDS: Citalopram 20 MG Tab PO SCH (08:28)
[2020-05-30] MEDS: Ertapenem 1 GM in Sodium Chloride 0.9% 50 ML IV SCH (09:17)
[2020-05-30] MEDS: Lisinopril 10 MG Tab PO SCH (10:40)
[2020-05-30] MEDS: amLODIPine 5 MG Tab PO SCH (10:40)
[2020-05-30 10:41] VITALS: BP 140/94
--- NOTE | 2020-05-30 10:53 | PCM.DCSUM1 ---
Discharge Summary - Hospital Course Free Text/Narrative:: Admission Date: 05/26/2020 Discharge Date: 05/29/2020 Admission/Discharge Diagnoses: Post-op drainage from drain site that was pulled 05/24/2020 - Wound culture growing Staph aureus (05/27), MSSA 05/29 - Continue ertapenem 1 gram IV daily (05/26 - 05/29) - Discontinue vancomycin (received 05/27-05/29) - Outpatient doxycycline 100 mg PO BID for additional 9 days for total of 14 days of antibiotics - Change dressing BID or more frequently depending in amount of drainage. Leukocytosis - Resolved, Upon admission WBC was 13.95 with 75% neutrophils, discharge was 5.72 with 57% neutrophils Elevated bilirubin - Etiology unclear. Was 2.8 at admission, at discharge is normal at 0.7 Post-operative abdominal pain - Continue oxycodone 5 mg PO q 6 hours PRN - He has not required pain medication in 2 days at time of discharge Pseudohypocalcemia - Corrected calcium is 9.3 with albumin is taken into account Anxiety - Continue alprazolam 0.5 mg PO daily PRN Depression - Continue citalopram 40 mg PO daily DM type 2 - Metformin ER 500 mg PO daily was held until 05/29 due to contrast on 05/26 HTN - BP has actually been on the low side - Amlodipine 5 mg PO BID had been held but BP is back up to hypertensive range so resume at discharge - Lisinopril 10 mg PO daily had been held but will resume at discharge Hx gout Eczema - Continue triamcinolone 0.1% cream topically to affected area TID PRN, rash to right upper chest has resolved Iron deficiency anemia - Continue ferrous sulfate 325 mg 1 tab PO daily CODE STATUS: Full Code New Medication at Discharge: Doxycycline 100 mg PO BID x 9 days, this was sent through his clinic chart to [facility] to start on 05/30. Brief History: Oscar was admitted on 05/26/2020 from clinic with drainage from the abdominal site where his drain was pulled on 05/24/2020. This area was cultured and he was started on ertapenem 1 gram IV daily. Culture result from 05/26 is growing Staph aureus on 05/27 and so vancomycin was added to his regimen. Culture results showed MSSA and so vancomycin was discontinued and he was on Ertamepen alone. Of note, CT abdomen/pelvis did not show any evidence of abscess although culture is positive. He has not needed any pain medication in 2 days. Overall he is doing much better and is ready for discharge to home. Diagnosis: Stroke: No Modified [place] Scale: No Signif.Disability Despite Sympt.Able to Carry Out Usual Act./Duties Modified Joanna Scale Score: 1 - Discharge Data Discharge Date: 05/30/20 Discharge Disposition: Home, Self-Care 01 Condition: Good - Referral to Home Health Primary Care Physician: Katy Cano MD - Patient Instructions Diet: Usual Diet as Tolerated Driving: May Drive Today Showering/Bathing: May Shower Wound/Incision Care: Change Dressing Daily (Change dressing twice daily or more often if needed.) Notify Provider of: Fever, Increased Pain, Swelling and Redness - Discharge Plan *PRESCRIPTION DRUG MONITORING PROGRAM REVIEWED*: No *COPY OF PRESCRIPTION DRUG MONITORING REPORT IN PATIENT MERRY: No Prescriptions/Med Rec: Doxycycline [Vibramycin] 100 mg PO BID 9 Days #18 cap Home Medications: Home Meds Citalopram [Citalopram HBr] 40 mg PO DAILY 07/18/14 [History] amLODIPine Besylate [Amlodipine Besylate] 5 mg PO BID 07/18/14 [History] Multivitamin with Minerals [Multiple Vitamin] 1 tab PO DAILY 10/08/15 [History] ALPRAZolam [Alprazolam] 0.5 mg PO DAILY PRN 03/21/17 [History] metFORMIN [Glucophage XR] 500 mg PO DAILY 03/21/17 [History] Aspirin [Aspirin EC] 81 mg PO DAILY 05/26/20 [History] Ferrous Sulfate 325 mg PO DAILY 05/26/20 [History] Triamcinolone Acetonide [Triamcinolone Acetonide 0.1% Crm] 1 applic TOP TID PRN 05/26/20 [History] lisinopriL [Lisinopril] 10 mg PO DAILY 05/26/20 [History] oxyCODONE HCl [Oxycodone HCl] 5 mg PO Q6HR PRN 05/26/20 [History] Doxycycline [Vibramycin] 100 mg PO BID 9 Days #18 cap 05/30/20 [Rx] - Discharge Summary/Plan Comment DC Time >30 min.: No - General Info Date of Service: 05/30/20 Admission Dx/Problem (Free Text: Post-op wound drainage. - Patient Data Vitals - Most Recent: Last Vital Signs Temp 97.7 F 05/30/20 05:56 Pulse 61 05/30/20 05:56 Resp 16 05/30/20 05:56 BP 140/94 H 05/30/20 10:40 Pulse Ox 93 L 05/30/20 05:56 Weight - Most Recent: 281 lb I&O - Last 24 hours: Intake & Output 05/29/20 05/30/20 05/30/20 22:59 06:59 14:59 Intake Total 1290 500 Balance 1290 500 Lab Results - Last 24 hrs: Laboratory Results - last 24 hr 05/30/20 05/30/20 Range/Units 07:20 07:20 WBC 5.72 (5.00-10.00) 10^3/uL RBC 3.94 L (4.50-6.00) 10^6/uL Hgb 12.5 L (13.0-17.0) g/dL Hct 35.9 L (40.0-52.0) % MCV 91.1 (82.0-92.0) fL MCH 31.7 H (27.0-31.0) pg MCHC 34.8 (32.0-36.0) g/dL RDW 11.6 (11.5-14.5) % Plt Count 357 (150-400) 10^3/uL MPV 9.3 (7.4-10.4) fL Add Manual Diff Yes Neutrophils % (Manual) 57 (50-70) % Lymphocytes % (Manual) 31 (20-40) % Monocytes % (Manual) 3 (2-8) % Eosinophils % (Manual) 9 H (1-3) % Absolute Neutrophils 3.2604 Lymphocytes # (Manual) 1.7732 Monocytes # (Manual) 0.1716 Eosinophils # (Manual) 0.5148 Sodium 138 (136-145) mmol/L Potassium 4.0 (3.3-5.3) mmol/L Chloride 100 (98-115) mmol/L Carbon Dioxide 26.0 (21.0-32.0) mmol/L Anion Gap 16.0 H (5-15) mmol/L BUN 8 (6-25) mg/dL Creatinine 0.86 (0.51-1.17) mg/dL Est Cr Clr Drug Dosing 108.86 mL/min Estimated GFR (MDRD) > 60 mL/min Glucose 95 (75 - 99) mg/dL Calcium 8.5 L (8.7-10.3) mg/dL Total Bilirubin 0.7 (0.2-1.0) mg/dL Direct Bilirubin 0.2 (0.0-0.2) mg/dL Indirect Bilirubin 0.5 mg/dL AST 38 H (15-37) U/L ALT 23 (12-78) U/L Alkaline Phosphatase 76 (46-116) IU/L Total Protein 7.4 (6.4-8.2) g/dL Albumin 2.97 L (3.00-4.80) g/dL Globulin 4.43 Albumin/Globulin Ratio 0.67 SON[facility] Results - Last 24 hrs: Microbiology 05/26/20 14:20 Aerobic Blood Culture - Preliminary Blood - Venous - Lab Draw NO GROWTH AFTER 3 DAYS Anaerobic Blood Culture - Preliminary NO GROWTH AFTER 3 DAYS 05/26/20 14:15 Aerobic Blood Culture - Preliminary Blood - Venous NO GROWTH AFTER 3 DAYS Anaerobic Blood Culture - Preliminary NO GROWTH AFTER 3 DAYS Med Orders - Current: Current Medications Acetaminophen (Tylenol) 650 mg PO Q4H PRN PRN Reason: Headache/Pain Last Admin: 05/27/20 03:09 Dose: 650 mg Documented by: Alprazolam (Xanax) 0.5 mg PO DAILY PRN PRN Reason: Anxiety Amlodipine Besylate (Norvasc) 5 mg PO BID [facility] Last Admin: 05/30/20 10:40 Dose: 5 mg Documented by: Aspirin (Halfprin) 81 mg PO DAILY [facility] Last Admin: 05/30/20 08:28 Dose: 81 mg Documented by: Citalopram Hydrobromide (Celexa) 40 mg PO DAILY [facility] Last Admin: 05/30/20 08:28 Dose: 40 mg Documented by: Ferrous Sulfate (Ferrous Sulfate) 325 mg PO DAILY [facility] Last Admin: 05/30/20 08:28 Dose: 325 mg Documented by: Sodium Chloride (Normal Saline) 50 mls @ 200 mls/hr IV ASDIRECTED [facility] Last Admin: 05/29/20 08:38 Dose: 200 mls/hr Documented by: Ertapenem 1 gm/ Sodium (Chloride) 50 mls @ 100 mls/hr IV DAILY [facility] Last Admin: 05/30/20 09:17 Dose: 100 mls/hr Documented by: Lisinopril (Prinivil) 10 mg PO DAILY [facility] Last Admin: 05/30/20 10:40 Dose: 10 mg Documented by: Metformin HCl (Glucophage Xr) 500 mg PO DAILY [facility] Last Admin: 05/30/20 08:28 Dose: 500 mg Documented by: Multivitamins/Minerals (Centrum) 1 tab PO DAILY [facility] Last Admin: 05/30/20 08:28 Dose: 1 tab Documented by: Ondansetron HCl (Zofran Odt) 4 mg PO Q6H PRN PRN Reason: nausea, able to take PO Oxycodone HCl (Oxycodone) 5 mg PO Q6HR PRN PRN Reason: Pain Last Admin: 05/27/20 21:26 Dose: 5 mg Documented by: Senna/Docusate Sodium (Senna Plus) 1 tab PO BID PRN PRN Reason: Constipation Triamcinolone Acetonide (Triamcinolone Acetonide 0.1% Crm) 0 gm TOP TID PRN PRN Reason: Other Discontinued Medications Diatrizoate Meglum/Diatrizoate Sod (Gastrografin 37%) 30 ml PO ONETIME ONE Stop: 05/26/20 11:57 Last Admin: 05/26/20 12:41 Dose: 30 ml Documented by: Vancomycin HCl 2 gm/ Sodium (Chloride) 250 mls @ 100 mls/hr IV Q12H [facility] Last Admin: 05/29/20 04:40 Dose: 100 mls/hr Documented by: Iopamidol (Isovue-370 (76%)) 100 ml IV ONETIME ONE Stop: 05/26/20 11:57 Last Admin: 05/26/20 12:41 Dose: 100 ml Documented by: Triamcinolone Acetonide (Triamcinolone Acetonide 0.1% Crm) 0 gm TOP TID [facility] Last Admin: 05/29/20 14:26 Dose: Not Given Documented by: Vancomycin HCl (Pharmacy To Dose - Vancomycin) 1 dose .XX DAILY [facility] - Exam General: Reports: Alert, Oriented, Cooperative, No Acute Distress Lungs: Reports: Clear to Auscultation, Normal Respiratory Effort Cardiovascular: Reports: Regular Rate, Regular Rhythm, No Murmurs GI/Abdominal Exam: Normal Bowel Sounds, Soft, Non-Tender
== END 2020-05-30 11:45 | disposition home or self-care (01) | DRG 721 ==
LOC: KA.MS 10:03 → KA.OC 10:03 → KA.MS 12:50 → UNDOADMIN 12:50 → KA.MS 13:20
PROVIDERS: ADMIT Internal Medicine; ATTEND Internal Medicine
DX: T81.49XA Infection following a procedure, other surgical site, initial encounter (principal); E83.51 Hypocalcemia; F41.9 Anxiety disorder, unspecified; F32.9 Major depressive disorder, single episode, unspecified; R74.8 Abnormal levels of other serum enzymes; G89.18 Other acute postprocedural pain; R10.9 Unspecified abdominal pain; Z20.828 Contact with and (suspected) exposure to other viral communicable diseases; E11.9 Type 2 diabetes mellitus without complications; I10 Essential (primary) hypertension; M10.9 Gout, unspecified; D50.9 Iron deficiency anemia, unspecified; L30.9 Dermatitis, unspecified; B95.61 Methicillin susceptible Staphylococcus aureus infection as the cause of diseases classified elsewhere; Z79.899 Other long term (current) drug therapy; Z79.82 Long term (current) use of aspirin; Z79.84 Long term (current) use of oral hypoglycemic drugs
CPT/HCPCS: 36415; 74177; 80048; 80053; 80076; 83605; 85025; 87040; 87070; 87147; 87186; 87205; 99223; 99231; 99232; 99233; 99238; A9270-GY; J1335; J3370; J7050; Q9963; Q9967; U0002

== ENCOUNTER 2021-07-21 11:29 | Observation (INO) | payer BC ==
[2021-07-21] MEDS ORDERED: Sodium Chloride 0.9% 1,000 ML IV ONE ×2 (12:30→13:30)
[2021-07-21] MEDS ORDERED: Iopamidol 755 Mg/ML 100 ML Bottle IV ONE (12:52)
[2021-07-21] MEDS ORDERED: Sodium Chloride 0.9% 50 ML IV SCH (13:00)
[2021-07-21 13:21] LABS: ANION GAP 17.1 mmol/L (5-15); CHLORIDE,CL 100 mmol/L (98-107); SODIUM,NA 136 mmol/L (136-145)
[2021-07-21 13:31] LABS: HEMOGLOBIN A1C 5.6 % (4.3-5.7)
--- NOTE | 2021-07-21 14:58 | CT ---
[id number] CT/CT Abdomen Pelvis WO IV Exam: CT Abdomen Pelvis WO IV Clinical Data: SUSPECTED INFECTION COMPARISON: CORRELATION IS MADE WITH FEBRUARY 01, 2021 FINDINGS: Surgical changes of the anterior abdominal wall are seen There is no fluid collection There may be cellulitis. There are surgical changes at the level of the GE junction. The liver and spleen, kidneys and adrenals, pancreas and aorta show no acute abnormalities. The gallbladder is not distended. The pelvis shows no mass or adenopathy There is no pelvic abscess. This changing caliber of the sigmoid colon on image #120, series 2. Question raised when the patient has had a colonoscopy IMPRESSION: SURGICAL CHANGES OF ANTERIOR ABDOMINAL WALL QUESTION OF CELLULITIS AT THIS LEVEL NO DISCRETE ABSCESS QUESTION OF APPLE CORE LESION OF SIGMOID COLON Noah Anderson MD 07/21/21 [id number] Thank you for allowing us to participate in the care of your patient.
[2021-07-21] MEDS ORDERED: Ondansetron 4 MG Tab.DIS PO PRN (18:31)
[2021-07-21] MEDS ORDERED: Acetaminophen 325 MG Tab PO PRN (18:31)
[2021-07-21] MEDS ORDERED: Sodium Chloride 0.9% 10 ML Syringe FLUSH PRN (18:31)
[2021-07-21] MEDS ORDERED: traMADol 50 MG Tab PO PRN (18:42)
[2021-07-21] MEDS ORDERED: ALPRAZolam 0.25 MG Tab PO PRN (19:07)
[2021-07-21] MEDS: Sodium Chloride 0.9% 1,000 ML IV SCH (19:26)
[2021-07-21] MEDS ORDERED: Pregabalin 25 MG Cap PO SCH (21:00)
[2021-07-22] MEDS: Sodium Chloride 0.9% 1,000 ML IV SCH (03:38)
[2021-07-22 06:14] VITALS: BP 108/62; PULSE 67
[2021-07-22 07:35] LABS: ANION GAP 14.5 mmol/L (5-15)
[2021-07-22] MEDS ORDERED: Citalopram 20 MG Tab PO SCH (09:00)
--- NOTE | 2021-07-22 09:24 | PCM.HP.2 ---
H&P History of Present Illness - General Date of Service: 07/21/21 Admit Problem/Dx: Admission Diagnosis/Problem Admission Diagnosis/Problem Acute renal injury due to hypovolemia Source of Information: Patient, Old Records, Provider History Limitations: Reports: No Limitations - Related Data Allergies/Adverse Reactions: Allergies Allergy/AdvReac Type Severity Reaction Status Date / Time No Known Drug Allergies Allergy Cannot Verified 07/21/21 19:55 Remember Home Medications: Home Meds Citalopram [Citalopram HBr] 40 mg PO DAILY 07/18/14 [History] Multivitamin with Minerals [Multiple Vitamin] 1 tab PO DAILY 10/08/15 [History] ALPRAZolam [Alprazolam] 0.5 mg PO DAILY PRN 03/21/17 [History] Triamcinolone Acetonide [Triamcinolone Acetonide 0.1% Crm] 1 applic TOP TID PRN 05/26/20 [History] Hydrocodone/Acetaminophen [HYDROcodone-Acetaminophen 5-325 MG] 1 - 2 tab PO Q4H PRN 07/21/21 [History] Pregabalin [Lyrica] 150 mg PO BID 07/21/21 [History] Sulfamethoxazole/Trimethoprim [Bactrim Ds Tablet] 1 tab PO BID 07/21/21 [History] traMADol HCl [Tramadol HCl] 50 mg PO Q6H PRN 07/21/21 [History] Acetaminophen [Tylenol] 650 mg PO Q4H PRN tablet 07/22/21 [Rx] Past Medical History HEENT History: Reports: Impaired Vision Cardiovascular History: Reports: Hypertension Gastrointestinal History: Reports: GERD, Other (See Below) Other Gastrointestinal History: chronic abdominal pain Musculoskeletal History: Reports: None Psychiatric History: Reports: Anxiety Endocrine/Metabolic History: Reports: Diabetes, Type II, Obesity/BMI 30+ Hematologic History: Reports: Iron Deficiency - Infectious Disease History Infectious Disease History: Reports: Chicken Pox, Mumps - Past Surgical History HEENT Surgical History: Reports: Oral Surgery Cardiovascular Surgical History: Reports: None GI Surgical History: Reports: Bariatric Procedure, Colonoscopy, EGD, Hernia, Abdominal, Other (See Below) Endocrine Surgical History: Reports: None Musculoskeletal Surgical History: Reports: Knee Replacement Other Musculoskeletal Surgeries/Procedures:: RIGHT Social & Family History - Family History Cardiac: Reports: Bypass, Hypertension GI: Reports: Other (See Below) Other GI Family History: colon cancer, father and sister - Tobacco Use Tobacco Use Status *Q: Never Tobacco User - Caffeine Use Caffeine Use: Reports: Soda Caffeine Use Comment: 1-2 cans/day H&P Review of Systems - Review of Systems: Review Of Systems: See Below General: Reports: Weakness, Diaphoresis, Decreased Appetite. Denies: Weight Loss, Weight Gain HEENT: Reports: No Symptoms Pulmonary: Reports: No Symptoms Cardiovascular: Reports: Dyspnea on Exertion, Lightheadedness, Blood Pressure Problem. Denies: Chest Pain, Palpitations, Orthopnea, PND, Edema, Syncope, Claudication Gastrointestinal: Reports: Abdominal Pain, Anorexia, Diarrhea. Denies: Black Stool, Constipation, Difficulty Swallowing, Distension, Flatus, Melena Genitourinary: Reports: Flank Pain Musculoskeletal: Reports: No Symptoms Skin: Reports: No Symptoms Psychiatric: Reports: No Symptoms Neurological: Reports: No Symptoms Hematologic/Lymphatic: Reports: No Symptoms Exam - Exam Exam: See Below - Vital Signs Vital Signs: Last Vital Signs Temp 98.2 F 07/22/21 06:13 Pulse 67 07/22/21 06:13 Resp 14 07/22/21 06:13 BP 108/62 07/22/21 06:13 Pulse Ox 94 L 07/22/21 06:13 Orthostatic Blood Pressure [ 79/58 Standing] Orthostatic Blood Pressure [ 95/55 Sitting] Orthostatic Blood Pressure [ 104/59 Supine] Weight: 300 lb - Exam Quality Assessment: No: Supplemental Oxygen General: Alert, Oriented, Mild Distress Neck: Supple Lungs: Clear to Auscultation, Normal Respiratory Effort Cardiovascular: Regular Rate, Regular Rhythm, Normal S1, Normal S2. No: Irregular Rhythm, Tachycardia GI/Abdominal Exam: Other (low bowel tones, RLQ to R mid quant abd pain ) Rectal (Males) Exam: Deferred Back Exam: No: CVA Tenderness (L), CVA Tenderness (R) Extremities: Normal Inspection, No Pedal Edema. No: Slow Capillary Refill Peripheral Pulses: 2+: Radial (L), Radial (R) Skin: Warm, Dry Neurological: Cranial Nerves Intact, Reflexes Equal Bilateral Neuro Extensive - Mental Status: Alert, Oriented x3, Normal Mood/Affect, Normal Cognition Neuro Extensive - Motor, Sensory, Reflexes: CN II-XII Intact, Normal Gait, Normal Reflexes Psychiatric: Alert, Normal Affect, Normal Mood - Patient Data Lab Results Last 24 hrs: Laboratory Results - last 24 hr 07/21/21 07/21/21 07/21/21 Range/Units 11:50 12:51 12:51 WBC 3.49 L (5.00-10.00) 10^3/uL RBC 4.21 L (4.50-6.00) 10^6/uL Hgb 13.0 D (13.0-17.0) g/dL Hct 40.9 (40.0-52.0) % MCV 97.1 H (82.0-92.0) fL MCH 30.9 (27.0-31.0) pg MCHC 31.8 L (32.0-36.0) g/dL RDW 13.1 (11.5-14.5) % Plt Count 141 L (150-400) 10^3/uL MPV 9.6 (7.4-10.4) fL Immature Gran % (Auto) 0.3 (0.0-5.0) % Neut % (Auto) 63.8 (50.0-70.0) % Lymph % (Auto) 23.5 (20.0-40.0) % Deuel % (Auto) 9.5 H (2.0-8.0) % Eos % (Auto) 2.3 (1.0-3.0) % Baso % (Auto) 0.6 (0.0-1.0) % Neut # (Auto) 2.23 L (2.50-7.00) 10^3/uL Lymph # (Auto) 0.82 L (1.00-4.00) 10^3/uL Deuel # (Auto) 0.33 (0.10-0.80) 10^3/uL Eos # (Auto) 0.08 L (0.10-0.30) 10^3/uL Baso # (Auto) 0.02 (0.00-0.10) 10^3/uL Immature Gran # (Auto) 0.01 (0.00-0.50) 10^3/uL Sodium 136 (136-145) mmol/L Potassium 4.6 (3.5-5.1) mmol/L Chloride 100 (98-107) mmol/L Carbon Dioxide 23.5 (21.0-32.0) mmol/L Anion Gap 17.1 H (5-15) mmol/L BUN 20 H (7-18) mg/dL Creatinine 2.46 H D (0.51-1.17) mg/dL Est Cr Clr Drug Dosing TNP Estimated GFR (MDRD) 27 mL/min Glucose 138 (70-140) mg/dL Hemoglobin A1c (4.3-5.7) % Lactic Acid (0.4-2.0) mmol/L Calcium 8.5 L (8.7-10.3) mg/dL Total Bilirubin 2.3 H (0.2-1.0) mg/dL AST 88 H (15-37) U/L ALT 25 (14-63) U/L Alkaline Phosphatase 88 (46-116) U/L Total Protein 7.6 (6.4-8.2) g/dL Albumin 3.39 L (3.40-5.00) g/dL SARS CoV-2 RNA Rapid RIGOBERTO Negative (NEGATIVE) 07/21/21 07/21/21 07/22/21 Range/Units 12:51 12:51 07:05 WBC (5.00-10.00) 10^3/uL RBC (4.50-6.00) 10^6/uL Hgb (13.0-17.0) g/dL Hct (40.0-52.0) % MCV (82.0-92.0) fL MCH (27.0-31.0) pg MCHC (32.0-36.0) g/dL RDW (11.5-14.5) % Plt Count (150-400) 10^3/uL MPV (7.4-10.4) fL Immature Gran % (Auto) (0.0-5.0) % Neut % (Auto) (50.0-70.0) % Lymph % (Auto) (20.0-40.0) % Deuel % (Auto) (2.0-8.0) % Eos % (Auto) (1.0-3.0) % Baso % (Auto) (0.0-1.0) % Neut # (Auto) (2.50-7.00) 10^3/uL Lymph # (Auto) (1.00-4.00) 10^3/uL Deuel # (Auto) (0.10-0.80) 10^3/uL Eos # (Auto) (0.10-0.30) 10^3/uL Baso # (Auto) (0.00-0.10) 10^3/uL Immature Gran # (Auto) (0.00-0.50) 10^3/uL Sodium 135 L (136-145) mmol/L Potassium 4.7 (3.5-5.1) mmol/L Chloride 103 (98-107) mmol/L Carbon Dioxide 22.2 (21.0-32.0) mmol/L Anion Gap 14.5 (5-15) mmol/L BUN 16 (7-18) mg/dL Creatinine 1.45 H (0.51-1.17) mg/dL Est Cr Clr Drug Dosing 62.99 Estimated GFR (MDRD) 50 mL/min Glucose 126 (70-140) mg/dL Hemoglobin A1c 5.6 (4.3-5.7) % Lactic Acid 1.9 (0.4-2.0) mmol/L Calcium 7.9 L (8.7-10.3) mg/dL Total Bilirubin 1.9 H (0.2-1.0) mg/dL AST 86 H (15-37) U/L ALT 25 (14-63) U/L Alkaline Phosphatase 74 (46-116) U/L Total Protein 6.6 (6.4-8.2) g/dL Albumin 2.81 L (3.40-5.00) g/dL SARS CoV-2 RNA Rapid RIGOBERTO (NEGATIVE) Result Diagrams: 07/21/21 12:51 07/22/21 07:05 Sepsis Event Note - Evaluation Sepsis Screening Result: No Definite Risk - Focused Exam Vital Signs: Vital Signs Temp Pulse Resp BP BP Pulse Ox 07/22/21 06:13 98.2 F 67 14 108/62 94 L 07/21/21 22:45 97.5 F 75 14 110/66 94 L Problem List Initiated/Reviewed/Updated: Yes Orders Last 24hrs: Active Orders 24 hr Category Date Time Status Patient Status [ADT] Routine ADT 07/21/21 18:31 Active Communication Order [RC] DAILY Care 07/21/21 18:55 Active Height and Weight [RC] .PRN Care 07/21/21 18:31 Active Intake and Output [RC] 1400,2200,0600 Care 07/21/21 18:34 Active May Shower [RC] ASDIRECTED Care 07/21/21 18:31 Active Orthostatic Vital Signs [RC] ASDIRECTED Care 07/22/21 08:00 Active Oxygen Therapy [RC] PRN Care 07/21/21 18:31 Active Peripheral IV Care [RC] 0900,2100 Care 07/21/21 18:38 Active Up ad [place] [RC] ASDIRECTED Care 07/21/21 18:31 Active Up to Chair [RC] ASDIRECTED Care 07/21/21 18:31 Active Vital Signs [RC] 0700,1500,2300 Care 07/21/21 18:31 Active Regular Diet [DIET] Diet 07/21/21 Dinner Active CULTURE BLOOD [BC] Stat Lab 07/21/21 12:51 Received CULTURE BLOOD [BC] Stat Lab 07/21/21 13:20 Received PROCALCITONIN [REF] Routine Lab 07/21/21 12:51 Received ALPRAZolam [Xanax] Med 07/21/21 19:07 Active 0.5 mg PO DAILY PRN Acetaminophen [TylenoL] Med 07/21/21 18:31 Active 650 mg PO Q4H PRN Citalopram [Celexa] Med 07/22/21 09:00 Active 40 mg PO DAILY Ondansetron [Zofran ODT] Med 07/21/21 18:31 Active 4 mg PO Q4H PRN Pregabalin [Lyrica] Med 07/21/21 21:00 Hold 150 mg PO BID Sodium Chloride 0.9% [Normal Saline] 1,000 ml Med 07/21/21 19:00 Active IV ASDIRECTED Sodium Chloride 0.9% [Saline Flush] Med 07/21/21 18:31 Active 10 ml FLUSH Q8HR PRN traMADol [Ultram] Med 07/21/21 18:42 Active 50 mg PO Q6H PRN Blood Culture x2 Reflex Set [OM.PC] Stat Oth 07/21/21 12:26 Ordered Peripheral IV Insertion Adult [OM.PC] Routine Oth 07/21/21 18:31 Ordered Resuscitation Status Routine Resus Stat 07/21/21 18:31 Ordered Medication Orders Acetaminophen (Acetaminophen 325 Mg Tab) 650 mg PO Q4H PRN PRN Reason: Pain (Mild 1-3)/fever Alprazolam (Alprazolam 0.25 Mg Tab) 0.5 mg PO DAILY PRN PRN Reason: Anxiety Citalopram Hydrobromide (Citalopram 20 Mg Tab) 40 mg PO DAILY [facility] Sodium Chloride (Normal Saline) 1,000 mls @ 125 mls/hr IV ASDIRECTED [facility] Last Admin: 07/22/21 03:38 Dose: 125 mls/hr Documented by: Infusion: 07/22/21 03:26 Dose: 125 mls/hr Documented by: Admin: 07/21/21 19:26 Dose: 125 mls/hr Documented by: LINDA Ondansetron HCl (Ondansetron 4 Mg Tab.Dis) 4 mg PO Q4H PRN PRN Reason: nausea, able to take PO Pregabalin (Pregabalin 25 Mg Cap) 150 mg PO BID KAS[place] Sodium Chloride (Sodium Chloride 0.9% 10 Ml Syringe) 10 ml FLUSH Q8HR PRN PRN Reason: keep vein open Tramadol HCl (Tramadol 50 Mg Tab) 50 mg PO Q6H PRN PRN Reason: Pain Assessment/Plan Comment:: History of present illness Oscar is a 61-year-old gentleman that was admitted into observation status due to dehydration, acute kidney injury requiring IV fluids and close electrolyte monitoring. Patient stated Sunday he was at work he started having a sharp burning pain suprapubic low abdominal mid region around and below his umbilicus therefore he went home went to bed and he stated he was "out of it" tossing and turning all night with a fever up to 102. The next day similar symptoms however body aches with his pain then radiating around to his right lower back flank area. Does have hypertension and he took his blood pressure medications today. Admits to decreased appetite, diarrhea starting today, no nausea or vomiting. No blood in stools. He does have history of T2DM well-controlled on diet along with Metformin. Neuro has a complicated surgical history in which he is day 6 postop for hernia repair. He has had multiple hernia repairs in [place] and [facility] with incidental abscess findings in which she had antibiotic beads placed in along with the mesh. Approximately 5 months ago he spent 2 days [facility] for small bowel obstruction however had spontaneous resolution Clinical work-up BP, 80s, slightly lightheaded, skin dry, and is lower abdomen slightly off to the right side, Normal white count, neutrophils 63%, lactic acid, 1.9 no fever, BUN 20, creatinine 2.46, CT without contrast; No discrete abscess question of apple core lesion sigmoid colon, question of cellulitis at this level of anterior abdominal wall Due to dehydration, hypotension, acute kidney injury patient agreed for observation stay and hydration and close monitoring. Primary Hospital problems --Acute kidney injury, prerenal --Dehydration --Hypotension --Abdominal pain Chronic problems Anxiety Depression T2DM, hold Metformin History of hypertension, hold BP meds Multiple ventral hernia repairs ED, hold due to hypotension Disposition/overall plan Patient will be admitted into OBS status for aggressive IV fluids, monitoring of abdominal pain, monitoring of renal indices, orthostatics - Mortality Measure Prognosis:: Good
--- NOTE | 2021-07-22 09:53 | PCM.DCSUM1 ---
Discharge Summary - Hospital Course Diagnosis: Stroke: No - Discharge Data Discharge Date: 07/22/21 Discharge Disposition: Home, Self-Care 01 Condition: Good - Referral to Home Health Primary Care Physician: Katy Cano MD - Patient Instructions Diet: Diabetic Diet Activity: As Tolerated, No Strenuous Activities, Rest and Relax Today Driving: May Drive Today Showering/Bathing: May Shower Notify Provider of: Fever, Increased Pain, Nausea and/or Vomiting (Report Any lightheadedness, drink lots of fluids, water, ) - Discharge Plan *PRESCRIPTION DRUG MONITORING PROGRAM REVIEWED*: Not Applicable *COPY OF PRESCRIPTION DRUG MONITORING REPORT IN PATIENT MERRY: Not Applicable Home Medications: Home Meds Citalopram [Citalopram HBr] 40 mg PO DAILY 07/18/14 [History] Multivitamin with Minerals [Multiple Vitamin] 1 tab PO DAILY 10/08/15 [History] ALPRAZolam [Alprazolam] 0.5 mg PO DAILY PRN 03/21/17 [History] Triamcinolone Acetonide [Triamcinolone Acetonide 0.1% Crm] 1 applic TOP TID PRN 05/26/20 [History] Hydrocodone/Acetaminophen [HYDROcodone-Acetaminophen 5-325 MG] 1 - 2 tab PO Q4H PRN 07/21/21 [History] Pregabalin [Lyrica] 150 mg PO BID 07/21/21 [History] Sulfamethoxazole/Trimethoprim [Bactrim Ds Tablet] 1 tab PO BID 07/21/21 [History] traMADol HCl [Tramadol HCl] 50 mg PO Q6H PRN 07/21/21 [History] Acetaminophen [Tylenol] 650 mg PO Q4H PRN tablet 07/22/21 [Rx] Referrals: Katy Cano MD [Primary Care Provider] - 07/27/21 10:30 am - Discharge Summary/Plan Comment DC Time >30 min.: Yes Total # of Minutes for Discharge Time: 45 min Discharge Summary/Plan Comment: Final diagnosis --Acute kidney injury, prerenal, improving --Dehydration, improving --Hypotension, improving --Abdominal pain, resolved History summary Oscar is a 61-year-old gentleman that was admitted into observation status due to dehydration, acute kidney injury requiring IV fluids and close electrolyte monitoring. Patient stated Sunday he was at work he started having a sharp burning pain suprapubic low abdominal mid region around and below his umbilicus therefore he went home went to bed and he stated he was "out of it" tossing and turning all night with a fever up to 102. The next day similar symptoms however body aches with his pain then radiating around to his right lower back flank area. Does have hypertension and he took his blood pressure medications today. Admits to decreased appetite, diarrhea starting today, no nausea or vomiting. No blood in stools. He does have history of T2DM well-controlled on diet along with Metformin. Neuro has a complicated surgical history in which he is day 6 postop for hernia repair. He has had multiple hernia repairs in [place] and [facility] with incidental abscess findings in which she had antibiotic beads placed in along with the mesh. Approximately 5 months ago he spent 2 days [facility] for small bowel obstruction however had spontaneous resolution Clinical work-up BP, 80s, slightly lightheaded, skin dry, and is lower abdomen slightly off to the right side, Normal white count, neutrophils 63%, lactic acid, 1.9 no fever, BUN 20, creatinine 2.46, Covid neg CT without contrast; No discrete abscess question of apple core lesion sigmoid colon, question of cellulitis at this level of anterior abdominal wall Due to dehydration, hypotension, acute kidney injury patient agreed for observation stay and hydration and close monitoring. Hospital course, patient was in observation overnight and received aggressive IV fluids and his renal indices, BP improved. He had no nausea or vomiting or diarrhea, his abdominal pain resolved. Intake 2300, output 1735. Bradycardia p.o. fluids. Improved orthostatics. His BP meds were held along with Metformin. He requested and tolerated a regular diet Medication changes/adjustments upon discharge --Aspirin, lisinopril, Metformin, sildenafil, all on HOLD until follow-up --Continue all other meds including Bactrim (Creat Cl 50) since CT possible cellulitis dual benefit however appears UA did not reflex to culture Discharge instructions see above Disposition/overall plan Patient clinically improved overnight however not optimal however can be discharged today with careful instructions on holding certain medications until follow-up. Must increase oral fluids today and tomorrow and stay well-hydrated. Discussion patient the results of his CT with the possibility of colonoscopy within the month. Patient agrees with plan. - General Info Functional Status: Reports: Pain Controlled (Denies abdominal pain), Tolerating Diet, Urinating - Review of Systems General: Reports: No Symptoms HEENT: Reports: No Symptoms Pulmonary: Reports: No Symptoms Cardiovascular: Reports: No Symptoms Gastrointestinal: Reports: No Symptoms Genitourinary: Reports: No Symptoms Musculoskeletal: Reports: No Symptoms Skin: Reports: No Symptoms Neurological: Reports: No Symptoms Psychiatric: Reports: No Symptoms - Patient Data Vitals - Most Recent: Last Vital Signs Temp 98.2 F 07/22/21 06:13 Pulse 67 07/22/21 06:13 Resp 14 07/22/21 06:13 BP 108/62 07/22/21 06:13 Pulse Ox 94 L 07/22/21 06:13 Orthostatic Blood Pressure [ 113/71 Standing] Orthostatic Blood Pressure [ 125/78 Sitting] Orthostatic Blood Pressure [ 109/67 Supine] Weight - Most Recent: 300 lb I&O - Last 24 hours: Intake & Output 07/21/21 07/22/21 07/22/21 22:59 06:59 14:59 Intake Total 0 2338 Output Total 600 Balance 0 1738 Lab Results - Last 24 hrs: Laboratory Results - last 24 hr 07/21/21 07/21/21 07/21/21 Range/Units 11:50 12:51 12:51 WBC 3.49 L (5.00-10.00) 10^3/uL RBC 4.21 L (4.50-6.00) 10^6/uL Hgb 13.0 D (13.0-17.0) g/dL Hct 40.9 (40.0-52.0) % MCV 97.1 H (82.0-92.0) fL MCH 30.9 (27.0-31.0) pg MCHC 31.8 L (32.0-36.0) g/dL RDW 13.1 (11.5-14.5) % Plt Count 141 L (150-400) 10^3/uL MPV 9.6 (7.4-10.4) fL Immature Gran % (Auto) 0.3 (0.0-5.0) % Neut % (Auto) 63.8 (50.0-70.0) % Lymph % (Auto) 23.5 (20.0-40.0) % Carroll % (Auto) 9.5 H (2.0-8.0) % Eos % (Auto) 2.3 (1.0-3.0) % Baso % (Auto) 0.6 (0.0-1.0) % Neut # (Auto) 2.23 L (2.50-7.00) 10^3/uL Lymph # (Auto) 0.82 L (1.00-4.00) 10^3/uL Carroll # (Auto) 0.33 (0.10-0.80) 10^3/uL Eos # (Auto) 0.08 L (0.10-0.30) 10^3/uL Baso # (Auto) 0.02 (0.00-0.10) 10^3/uL Immature Gran # (Auto) 0.01 (0.00-0.50) 10^3/uL Sodium 136 (136-145) mmol/L Potassium 4.6 (3.5-5.1) mmol/L Chloride 100 (98-107) mmol/L Carbon Dioxide 23.5 (21.0-32.0) mmol/L Anion Gap 17.1 H (5-15) mmol/L BUN 20 H (7-18) mg/dL Creatinine 2.46 H D (0.51-1.17) mg/dL Est Cr Clr Drug Dosing TNP Estimated GFR (MDRD) 27 mL/min Glucose 138 (70-140) mg/dL Hemoglobin A1c (4.3-5.7) % Lactic Acid (0.4-2.0) mmol/L Calcium 8.5 L (8.7-10.3) mg/dL Total Bilirubin 2.3 H (0.2-1.0) mg/dL AST 88 H (15-37) U/L ALT 25 (14-63) U/L Alkaline Phosphatase 88 (46-116) U/L Total Protein 7.6 (6.4-8.2) g/dL Albumin 3.39 L (3.40-5.00) g/dL SARS CoV-2 RNA Rapid RIGOBERTO Negative (NEGATIVE) 07/21/21 07/21/21 07/22/21 Range/Units 12:51 12:51 07:05 WBC (5.00-10.00) 10^3/uL RBC (4.50-6.00) 10^6/uL Hgb (13.0-17.0) g/dL Hct (40.0-52.0) % MCV (82.0-92.0) fL MCH (27.0-31.0) pg MCHC (32.0-36.0) g/dL RDW (11.5-14.5) % Plt Count (150-400) 10^3/uL MPV (7.4-10.4) fL Immature Gran % (Auto) (0.0-5.0) % Neut % (Auto) (50.0-70.0) % Lymph % (Auto) (20.0-40.0) % Carroll % (Auto) (2.0-8.0) % Eos % (Auto) (1.0-3.0) % Baso % (Auto) (0.0-1.0) % Neut # (Auto) (2.50-7.00) 10^3/uL Lymph # (Auto) (1.00-4.00) 10^3/uL Carroll # (Auto) (0.10-0.80) 10^3/uL Eos # (Auto) (0.10-0.30) 10^3/uL Baso # (Auto) (0.00-0.10) 10^3/uL Immature Gran # (Auto) (0.00-0.50) 10^3/uL Sodium 135 L (136-145) mmol/L Potassium 4.7 (3.5-5.1) mmol/L Chloride 103 (98-107) mmol/L Carbon Dioxide 22.2 (21.0-32.0) mmol/L Anion Gap 14.5 (5-15) mmol/L BUN 16 (7-18) mg/dL Creatinine 1.45 H (0.51-1.17) mg/dL Est Cr Clr Drug Dosing 62.99 Estimated GFR (MDRD) 50 mL/min Glucose 126 (70-140) mg/dL Hemoglobin A1c 5.6 (4.3-5.7) % Lactic Acid 1.9 (0.4-2.0) mmol/L Calcium 7.9 L (8.7-10.3) mg/dL Total Bilirubin 1.9 H (0.2-1.0) mg/dL AST 86 H (15-37) U/L ALT 25 (14-63) U/L Alkaline Phosphatase 74 (46-116) U/L Total Protein 6.6 (6.4-8.2) g/dL Albumin 2.81 L (3.40-5.00) g/dL SARS CoV-2 RNA Rapid RIGOBERTO (NEGATIVE) Med Orders - Current: Current Medications Acetaminophen (Acetaminophen 325 Mg Tab) 650 mg PO Q4H PRN PRN Reason: Pain (Mild 1-3)/fever Alprazolam (Alprazolam 0.25 Mg Tab) 0.5 mg PO DAILY PRN PRN Reason: Anxiety Citalopram Hydrobromide (Citalopram 20 Mg Tab) 40 mg PO DAILY [facility] Sodium Chloride (Normal Saline) 1,000 mls @ 125 mls/hr IV ASDIRECTED [facility] Last Admin: 07/22/21 03:38 Dose: 125 mls/hr Documented by: Ondansetron HCl (Ondansetron 4 Mg Tab.Dis) 4 mg PO Q4H PRN PRN Reason: nausea, able to take PO Pregabalin (Pregabalin 25 Mg Cap) 150 mg PO BID [facility] Sodium Chloride (Sodium Chloride 0.9% 10 Ml Syringe) 10 ml FLUSH Q8HR PRN PRN Reason: keep vein open Tramadol HCl (Tramadol 50 Mg Tab) 50 mg PO Q6H PRN PRN Reason: Pain Discontinued Medications Sodium Chloride (Normal Saline) 1,000 mls @ 999 mls/hr IV .BOLUS ONE Stop: 07/21/21 13:30 Last Admin: 07/21/21 12:30 Dose: 999 mls/hr Documented by: Sodium Chloride (Normal Saline) 1,000 mls @ 200 mls/hr IV .BOLUS ONE Stop: 07/21/21 18:29 Last Admin: 07/21/21 13:32 Dose: 200 mls/hr Documented by: - Exam General: Reports: Alert, Oriented Lungs: Reports: Clear to Auscultation, Normal Respiratory Effort Cardiovascular: Reports: Regular Rate, Regular Rhythm. Denies: Tachycardia GI/Abdominal Exam: Normal Bowel Sounds, Soft, Non-Tender. No: Distended, Guarding, Rigid, Rebound, Tender Skin: Reports: Warm, Dry, Intact
== END 2021-07-22 10:45 | disposition home or self-care (01) ==
LOC: KA.MS 11:29 → KA.OC 11:29 → UNDOADMOB 16:40 → KA.MS 16:40
PROVIDERS: ADMIT Nurse Practitioner Family; ATTEND Nurse Practitioner Family
DX: N17.9 Acute kidney failure, unspecified (principal); E86.0 Dehydration; I10 Essential (primary) hypertension; F41.9 Anxiety disorder, unspecified; F32.9 Major depressive disorder, single episode, unspecified; E11.9 Type 2 diabetes mellitus without complications; E66.9 Obesity, unspecified; Z98.890 Other specified postprocedural states; Z79.84 Long term (current) use of oral hypoglycemic drugs; Z20.822 Contact with and (suspected) exposure to COVID-19; Z68.38 Body mass index [BMI] 38.0-38.9, adult
CPT/HCPCS: 36415; 74176; 80053; 83036; 83605; 84145; 85025; 87040; A9270-GY; G0378; G0379; J7030; U0002

== ENCOUNTER 2021-07-25 08:50 | Observation (INO) | payer BC ==
[2021-07-25] MEDS ORDERED: Sodium Chloride 0.9% 1,000 ML IV ONE (09:20)
[2021-07-25] MEDS ORDERED: Sodium Chloride 0.9% 10 ML Syringe FLUSH PRN ×2 (09:20→10:59)
--- NOTE | 2021-07-25 09:29 | EDM.PDOC ---
ED HPI GENERAL MEDICAL PROBLEM - General Chief Complaint: General Stated Complaint: CONFUSION/DELIRIUM Time Seen by Provider: 07/25/21 09:05 Source of Information: Reports: Patient, Family, Old Records History Limitations: Reports: Altered Mental Status - History of Present Illness INITIAL COMMENTS - FREE TEXT/NARRATIVE: 61 YO WM WITH PMH OF RECENT ACUTE RENAL FAILURE DUE TO DEHYDRATION PRESENTS TO ER WITH COMPLAINTS OF CONFUSION/DELIRIUM PER FAMILY. PT WAS DISCHARGED FROM HOSPITAL ON 07/22/2021 FOR DEHYDRATION AND ACUTE RENAL FAILURE. PT WAS GIVEN IVF IN HOSPITAL AND RESPONDED WELL. ACCORDING TO PT , HE WAS DOING FINE ON SUNDAY/SUNDAY, BUT YESTERDAY AFTERNOON HE WAS ACTING STRANGELY AND BY LAST NIGHT HE SEEMED AGITATED AND CONFUSED. WANTED TO TAKE HIM TO ER LAST NIGHT BUT PATIENT REFUSED. STATES THIS AM HE SEEMED MORE CONFUSED AND WAS ABLE TO CONVINCE HIM TO COME TO ER FOR FURTHER EVALUATION. PT ALSO HAS DEVELOPED A MACULAR RASH WHICH STATES WAS PRESENT WHILE IN HOSPITAL. STATES PATIENT IS TAKING BACTRIM DS ANTIBIOTIC FOR SUSPECTED UTI WHICH THOUGHT MAYBE HE HAD TAKEN CAUSING THIS RASH. PT IN NO ACUTE DISTRESS. PT ALERT AND ORIENTED TO SELF AND PLACE. GCS-15. PT DENIES ANY COMPLAINTS AT THIS TIME. NO FACIAL DROOP, NO SLURRED SPEECH, NO PRONATOR DRIFT OR NEURO DEFICITS NOTED. Onset Date: 07/24/21 Location: Reports: Generalized Improves with: Reports: None Worsens with: Reports: None Associated Symptoms: Reports: Confusion, Weakness. Denies: Chest Pain, Fever/Chills, Headaches, Nausea/Vomiting, Shortness of Breath - Related Data Allergies Allergy/AdvReac Type Severity Reaction Status Date / Time No Known Drug Allergies Allergy Cannot Verified 07/25/21 09:32 Remember Home Meds: Home Meds Citalopram [Citalopram HBr] 40 mg PO DAILY 07/18/14 [History] Multivitamin with Minerals [Multiple Vitamin] 1 tab PO DAILY 10/08/15 [History] ALPRAZolam [Alprazolam] 0.5 mg PO DAILY PRN 03/21/17 [History] Triamcinolone Acetonide [Triamcinolone Acetonide 0.1% Crm] 1 applic TOP TID PRN 05/26/20 [History] Hydrocodone/Acetaminophen [HYDROcodone-Acetaminophen 5-325 MG] 1 - 2 tab PO Q4H PRN 07/21/21 [History] Pregabalin [Lyrica] 150 mg PO BID 07/21/21 [History] Sulfamethoxazole/Trimethoprim [Bactrim Ds Tablet] 1 tab PO BID 07/21/21 [History] traMADol HCl [Tramadol HCl] 50 mg PO Q6H PRN 07/21/21 [History] Acetaminophen [Tylenol] 650 mg PO Q4H PRN tablet 07/22/21 [Rx] Past Medical History HEENT History: Reports: Impaired Vision Cardiovascular History: Reports: Hypertension Gastrointestinal History: Reports: GERD, Other (See Below) Other Gastrointestinal History: chronic abdominal pain Musculoskeletal History: Reports: None Psychiatric History: Reports: Anxiety Endocrine/Metabolic History: Reports: Diabetes, Type II, Obesity/BMI 30+ Hematologic History: Reports: Iron Deficiency - Infectious Disease History Infectious Disease History: Reports: Chicken Pox, Mumps - Past Surgical History HEENT Surgical History: Reports: Oral Surgery Cardiovascular Surgical History: Reports: None GI Surgical History: Reports: Bariatric Procedure, Colonoscopy, EGD, Hernia, Abdominal, Other (See Below) Endocrine Surgical History: Reports: None Musculoskeletal Surgical History: Reports: Knee Replacement Other Musculoskeletal Surgeries/Procedures:: RIGHT Social & Family History - Family History Cardiac: Reports: Bypass, Hypertension GI: Reports: Other (See Below) Other GI Family History: colon cancer, father and sister - Caffeine Use Caffeine Use: Reports: Soda Caffeine Use Comment: 1-2 cans/day ED ROS GENERAL - Review of Systems Review Of Systems: See Below Constitutional: Reports: Weakness. Denies: Fever, Decreased Appetite HEENT: Reports: No Symptoms Respiratory: Reports: No Symptoms Cardiovascular: Reports: No Symptoms Endocrine: Reports: Fatigue GI/Abdominal: Reports: No Symptoms : Reports: No Symptoms Musculoskeletal: Reports: No Symptoms Skin: Reports: Rash Neurological: Reports: Confusion, Weakness. Denies: Dizziness, Headache, Seizure, Syncope, Trouble Speaking, Change in Speech Psychiatric: Reports: Confusion Hematologic/Lymphatic: Reports: No Symptoms Immunologic: Reports: No Symptoms ED EXAM, GENERAL - Physical Exam Exam: See Below Exam Limited By: Altered Mental Status General Appearance: Alert, WD/WN, No Apparent Distress Eye Exam: Bilateral Eye: EOMI, PERRL Head: Atraumatic, Normocephalic Neck: Normal Inspection, Supple, Non-Tender, Full Range of Motion Respiratory/Chest: No Respiratory Distress, Lungs Clear, Normal Breath Sounds, No Accessory Muscle Use, Chest Non-Tender Cardiovascular: Normal Peripheral Pulses, Regular Rate, Rhythm, No Edema, No Gallop, No JVD, No Murmur, No Rub GI/Abdominal: Normal Bowel Sounds, Soft, Non-Tender, No Organomegaly, No Distention, No Abnormal Bruit, No Mass Back Exam: Normal Inspection, Full Range of Motion, NT Extremities: Normal Inspection, Normal Range of Motion, Non-Tender, Normal Capillary Refill, No Pedal Edema Neurological: Alert, CN II-XII Intact, No Motor/Sensory Deficits Psychiatric: Normal Mood, Flat Affect Skin Exam: Rash (MACULAR GENERALIZED RASH) Lymphatic: No Adenopathy Course - Vital Signs Last Recorded V/S: Last Vital Signs Temp 96.3 F L 07/25/21 09:00 Pulse 71 07/25/21 09:00 Resp 20 07/25/21 09:00 BP 110/76 07/25/21 09:00 Pulse Ox 96 07/25/21 09:00 - Orders/Labs/Meds Orders: Active Orders 24 hr Category Date Time Status Peripheral IV Care [RC] . DIRECTED Care 07/25/21 09:20 Active COMPREHENSIVE METABOLIC PN,CMP [CHEM] Stat Lab 07/25/21 09:20 Results CULTURE BLOOD [BC] Stat Lab 07/25/21 09:38 Ordered CULTURE BLOOD [BC] Stat Lab 07/25/21 10:00 Received UA W/MICROSCOPIC [URIN] Stat Lab 07/25/21 09:20 Ordered Sodium Chloride 0.9% [Saline Flush] Med 07/25/21 09:20 Active 10 ml FLUSH Q8HR PRN Blood Culture x2 Reflex Set [OM.PC] Stat Oth 07/25/21 09:38 Ordered Peripheral IV Insertion Adult [OM.PC] Routine Oth 07/25/21 09:20 Ordered Medication Orders Sodium Chloride (Sodium Chloride 0.9% 10 Ml Syringe) 10 ml FLUSH Q8HR PRN PRN Reason: keep vein open Labs: Laboratory Tests 07/25/21 07/25/21 07/25/21 Range/Units 09:20 09:20 09:20 WBC 5.05 (5.00-10.00) 10^3/uL RBC 4.11 L (4.50-6.00) 10^6/uL Hgb 12.7 L (13.0-17.0) g/dL Hct 39.4 L (40.0-52.0) % MCV 95.9 H (82.0-92.0) fL MCH 30.9 (27.0-31.0) pg MCHC 32.2 (32.0-36.0) g/dL RDW 13.2 (11.5-14.5) % Plt Count 157 (150-400) 10^3/uL MPV 10.6 H (7.4-10.4) fL Immature Gran % (Auto) 0.4 (0.0-5.0) % Neut % (Auto) 72.3 H (50.0-70.0) % Lymph % (Auto) 15.8 L (20.0-40.0) % [place] % (Auto) 6.5 (2.0-8.0) % Eos % (Auto) 4.6 H (1.0-3.0) % Baso % (Auto) 0.4 (0.0-1.0) % Neut # (Auto) 3.65 (2.50-7.00) 10^3/uL Lymph # (Auto) 0.80 L (1.00-4.00) 10^3/uL [place] # (Auto) 0.33 (0.10-0.80) 10^3/uL Eos # (Auto) 0.23 (0.10-0.30) 10^3/uL Baso # (Auto) 0.02 (0.00-0.10) 10^3/uL Immature Gran # (Auto) 0.02 (0.00-0.50) 10^3/uL Sodium 140 (136-145) mmol/L Potassium 4.3 (3.5-5.1) mmol/L Chloride 104 (98-107) mmol/L Carbon Dioxide 24.4 (21.0-32.0) mmol/L Anion Gap 15.9 H (5-15) mmol/L Creatinine 1.80 H (0.51-1.17) mg/dL Est Cr Clr Drug Dosing 50.74 mL/min Estimated GFR (MDRD) 39 mL/min Glucose 146 H (70-140) mg/dL Lactic Acid (0.4-2.0) mmol/L Calcium 8.5 L (8.7-10.3) mg/dL Total Bilirubin 1.9 H (0.2-1.0) mg/dL AST 280 H (15-37) U/L ALT 156 H (14-63) U/L Alkaline Phosphatase 77 (46-116) U/L Ammonia < 10 L (11-32) umol/L Total Protein 7.7 (6.4-8.2) g/dL Albumin 3.40 (3.40-5.00) g/dL 07/25/21 Range/Units 09:20 WBC (5.00-10.00) 10^3/uL RBC (4.50-6.00) 10^6/uL Hgb (13.0-17.0) g/dL Hct (40.0-52.0) % MCV (82.0-92.0) fL MCH (27.0-31.0) pg MCHC (32.0-36.0) g/dL RDW (11.5-14.5) % Plt Count (150-400) 10^3/uL MPV (7.4-10.4) fL Immature Gran % (Auto) (0.0-5.0) % Neut % (Auto) (50.0-70.0) % Lymph % (Auto) (20.0-40.0) % [place] % (Auto) (2.0-8.0) % Eos % (Auto) (1.0-3.0) % Baso % (Auto) (0.0-1.0) % Neut # (Auto) (2.50-7.00) 10^3/uL Lymph # (Auto) (1.00-4.00) 10^3/uL [place] # (Auto) (0.10-0.80) 10^3/uL Eos # (Auto) (0.10-0.30) 10^3/uL Baso # (Auto) (0.00-0.10) 10^3/uL Immature Gran # (Auto) (0.00-0.50) 10^3/uL Sodium (136-145) mmol/L Potassium (3.5-5.1) mmol/L Chloride (98-107) mmol/L Carbon Dioxide (21.0-32.0) mmol/L Anion Gap (5-15) mmol/L Creatinine (0.51-1.17) mg/dL Est Cr Clr Drug Dosing mL/min Estimated GFR (MDRD) mL/min Glucose (70-140) mg/dL Lactic Acid 1.6 (0.4-2.0) mmol/L Calcium (8.7-10.3) mg/dL Total Bilirubin (0.2-1.0) mg/dL AST (15-37) U/L ALT (14-63) U/L Alkaline Phosphatase (46-116) U/L Ammonia (11-32) umol/L Total Protein (6.4-8.2) g/dL Albumin (3.40-5.00) g/dL Meds: Medications Generic Name Dose Route Start Last Admin Trade Name Freq PRN Reason Stop Dose Admin Sodium Chloride 10 ml 07/25/21 09:20 Sodium Chloride 0.9% 10 Ml Syringe FLUSH Q8HR PRN keep vein open Discontinued Medications Generic Name Dose Route Start Last Admin Trade Name Freq PRN Reason Stop Dose Admin Sodium Chloride 1,000 mls @ 999 mls/hr 07/25/21 09:20 07/25/21 09:55 Normal Saline IV 07/25/21 10:20 999 mls/hr .BOLUS ONE Administration - Radiology Interpretation Free Text/Narrative:: CT HEAD- NAD CXR-NAD Departure - Departure Time of Disposition: 10:57 Disposition: Refer to Observation Condition: Poor Clinical Impression: Delirium, Elevated LFTs - Discharge Information Referrals: Katy Cano MD [Primary Care Provider] - Forms: ED Department Discharge Sepsis Event Note (ED) - Focused Exam Vital Signs: Vital Signs Temp Pulse Resp BP Pulse Ox 07/25/21 09:00 96.3 F L 71 20 110/76 96 - My Orders Last 24 Hours: My Active Orders 07/25/21 09:20 Peripheral IV Care [RC] . DIRECTED COMPREHENSIVE METABOLIC PN,CMP [CHEM] Stat UA W/MICROSCOPIC [URIN] Stat Sodium Chloride 0.9% [Saline Flush] 10 ml FLUSH Q8HR PRN Peripheral IV Insertion Adult [OM.PC] Routine 07/25/21 09:38 CULTURE BLOOD [BC] Stat Blood Culture x2 Reflex Set [OM.PC] Stat 07/25/21 10:00 CULTURE BLOOD [BC] Stat - Assessment/Plan Last 24 Hours: My Active Orders 07/25/21 09:20 Peripheral IV Care [RC] . DIRECTED COMPREHENSIVE METABOLIC PN,CMP [CHEM] Stat UA W/MICROSCOPIC [URIN] Stat Sodium Chloride 0.9% [Saline Flush] 10 ml FLUSH Q8HR PRN Peripheral IV Insertion Adult [OM.PC] Routine 07/25/21 09:38 CULTURE BLOOD [BC] Stat Blood Culture x2 Reflex Set [OM.PC] Stat 07/25/21 10:00 CULTURE BLOOD [BC] Stat Assessment:: 1. ACUTE DELIRIUM 2. ELEVATED LFT'S Plan: 1. ADMIT TO MEDICINE- DR KULKARNI ACCEPTED @1040 2. CONTINUE MONITORING 3. REPEAT AMMONIA/LFT'S 4. SUPPORTIVE CARE
[2021-07-25 09:48] LABS: ANION GAP 15.9 mmol/L (5-15)
--- NOTE | 2021-07-25 09:57 | CT ---
[id number] CT/CT Head WO IV EXAM: CT Head WO IV CLINICAL DATA: CONFUSION. COMPARISON STUDY: None FINDINGS: No intracranial hemorrhage, extra-axial fluid collection, mass, or acute ischemia. Generalized parenchymal atrophy with scattered areas of nonspecific white matter disease, commonly seen as sequela of chronic microvascular ischemia. Soft tissues are unremarkable. Paranasal sinuses and mastoid air cells are clear. IMPRESSION: No acute intracranial findings. Jerman Miller DO 07/25/21 0956 Thank you for allowing us to participate in the care of your patient.
--- NOTE | 2021-07-25 09:57 | CR ---
[id number] RAD/RAD Chest PA or AP 1V EXAM: SINGLE VIEW CHEST. INDICATION: CHANGE IN MENTAL STATUS COMPARISON: CORRELATION IS MADE WITH DECEMBER 20, 2027 FINDINGS: The lungs are clear The cardiomediastinal contour is stable IMPRESSION: NO ACUTE PROCESS Noah Anderson MD 07/25/21 0957 Thank you for allowing us to participate in the care of your patient.
[2021-07-25] MEDS ORDERED: Sodium Chloride 0.9% 1,000 ML IV SCH (13:00)
[2021-07-25] MEDS ORDERED: traMADol 50 MG Tab PO PRN (17:31)
[2021-07-25] MEDS ORDERED: Acetaminophen 325 MG Tab PO PRN (17:31)
[2021-07-25] MEDS ORDERED: Acetaminophen/HYDROcodone 325-5 MG Tab PO PRN (17:31)
[2021-07-25] MEDS ORDERED: ALPRAZolam 0.25 MG Tab PO PRN (17:31)
[2021-07-25] MEDS ORDERED: Triamcinolone Acetonide 0.1% Crm 15 GM Tube TOP PRN (17:31)
[2021-07-25] MEDS ORDERED: Haloperidol Lactate 5 MG/ML SDV IM PRN (19:53)
[2021-07-25] MEDS: QUEtiapine 25 MG Tab PO ONE ×2 (20:31→21:33)
[2021-07-26] MEDS ORDERED: LORazepam 2 MG/ML SDV IVPUSH ONE ×2 (04:39→10:25)
[2021-07-26 08:52] LABS: ANION GAP 19.3 mmol/L (5-15); CHLORIDE,CL 102 mmol/L (98-107); SODIUM,NA 138 mmol/L (136-145)
[2021-07-26] MEDS ORDERED: Multivitamins with Minerals/Iron/Folic Acid/Lycopene Tab PO SCH (09:00)
[2021-07-26] MEDS ORDERED: Citalopram 20 MG Tab PO SCH (09:00)
[2021-07-26 11:34] VITALS: BP 116/83; PULSE 95
--- NOTE | 2021-07-26 12:46 | PCM.DCSUM1 ---
Discharge Summary - Hospital Course Diagnosis: Stroke: No - Discharge Data Discharge Date: 07/26/21 Discharge Disposition: Home, Self-Care 01 Condition: Good - Referral to Home Health Primary Care Physician: Katy Cano MD - Patient Instructions Diet: Usual Diet as Tolerated, Drink 8-10+ Glasses/Day Activity: Rest and Relax Today Driving: Do Not Drive Showering/Bathing: May Shower Notify Provider of: Nausea and/or Vomiting Other/Special Instructions: Report any further/worsening confusion state, combativeness, or any fever, vomiting. Do not leave patient alone. Do not allow him to cook, or drive. DO not take any hydrocodone, Gabapentin or Tramadol until further notice. MRI of head tommorrow at [facility]. Will see Dr Burns Sunday at [facility] clinic. I ordered some "calming med" that can be given to him if needed. (do not let Oscar self dose of any meds for now). Encourage sleep hygiene. - Discharge Plan *PRESCRIPTION DRUG MONITORING PROGRAM REVIEWED*: Yes *COPY OF PRESCRIPTION DRUG MONITORING REPORT IN PATIENT MERRY: Yes Home Medications: Home Meds Citalopram [Citalopram HBr] 40 mg PO DAILY 07/18/14 [History] Multivitamin with Minerals [Multiple Vitamin] 1 tab PO DAILY 10/08/15 [History] ALPRAZolam [Alprazolam] 0.5 mg PO DAILY PRN 03/21/17 [History] Triamcinolone Acetonide [Triamcinolone Acetonide 0.1% Crm] 1 applic TOP TID PRN 05/26/20 [History] Acetaminophen [Tylenol] 650 mg PO Q4H PRN tablet 07/22/21 [Rx] Referrals: Katy Cano MD [Primary Care Provider] - (Sunday) - Discharge Summary/Plan Comment DC Time >30 min.: Yes Total # of Minutes for Discharge Time: 60 minutes Discharge Summary/Plan Comment: Final diagnosis Acute Delirium, improving, suspect medication induced Primary psychiatric illness possible such as increased anxiety due to recent events Dehydration, improved Elevated transaminases, improving History summary Oscar is a 61 old black male who was admitted through the ED due to acute confusion. Was recently in the hospital last week (07/22) overnight stay due to abdominal pain, dehydration, DUONG suspected of prerenal condition and after hydration much improved therefore discharged back home. Over the next 2 days he was doing well however the day before admission his spouse started to notice that he was acting strange seem to be progressing worse into the night in which he seemed agitated and confused and was not making sense per report--however patient refused ED evaluation that night however the next morning he seemed more confused prompting patient agreement for ED evaluation. Patient did have a UTI mild and had been on Bactrim subsequently developed a rash. No fever no vomiting. Does have a history of anxiety and depression. Surgical Hx; complicated surgical history in which recent postop for hernia repair. He has had multiple hernia repairs in [place] and [facility] with incidental abscess findings in which he had antibiotic beads placed in along with mesh repair. Approximately 5 months ago he spent 2 days [facility] for small bowel obstruction however had spontaneous resolution ED clinical course GSC 15, no acute findings on head CT, no fever, BP normal Neutrophils marginal at 72%, WBC normal. 19, creatinine 1.80, AST 280, ALT 156, pneumonia less than 10, with a positive nitrites with moderate bili boy clear ketones with glucose. ___ Hospital course Patient was agitated on/off throughout his hospital course and desired to go home however he was convinced of staying overnight although he did pull out his IV and required benzodiazepines around 0400 this morning. On rounds this am he was very much close his mentation baseline. Renal indices and hepatic indices improved. He refused to take any PO Haldol and Seroquel. Gabapentin and all other narcotics were held. Neurological exam; Speech, good, full comprehension, fluent with no repetition hears and understands, no expressive aphasia, no dysphonia or dysarthria no jargon aphasia. Words seem deformed he was able to repeat difficult phrases without any problems. Fully alert and oriented, answers yes and no to basic questioning, he obeyed simple commands without difficulty. no focal or diffuse neurological deficits, fidgety at first however calmed down quite easily, some slight emotional lability, mood was fair not euphoric, no delusions or hallucinations, doubtful any neurosis memory is good. Good serial fives however poor serial sevens. CN II-XII grossly intact. Medication changes/adjustments upon discharge --Lorazepam 0.5 mg p.o. Q8 hrs PRN #20 given (newly added on discharge) --Bactrim, DC, new allergy rash on file --HOLD Tramadol, hydrocodone, gabapentin, Metformin AND BP meds lisinopril and Norvasc until follow-up Disosition/overall plan --We will discharge from [facility]3] in the company of his spouse, patient very close back to his mentation baseline today --MRI [facility]3] 07/27 --Mid follow with Dr. Katy Peralta Sunday --Hydration and sleep hygiene discussed Patient discharge instructions Report any further/worsening confusion state, combativeness, or any fever, vomiting. Do not leave patient alone Do not allow him to cook, or drive DO not take any hydrocodone, Gabapentin or Tramadol until further notice. MRI of head tommorrow at [facility] Will see Dr Burns Sunday at [facility] clinic. I ordered some "calming med" that can be given to him if needed. (do not let Oscar self dose of any meds for now) Encourage sleep hygiene. - General Info Date of Service: 07/26/21 Functional Status: Reports: Pain Controlled. Denies: Tolerating Diet (does not eat breakfast ) - Review of Systems General: Reports: No Symptoms HEENT: Reports: No Symptoms Pulmonary: Reports: No Symptoms Cardiovascular: Reports: No Symptoms Gastrointestinal: Reports: No Symptoms Genitourinary: Reports: No Symptoms, Incontinence. Denies: Burning, Pain, Hematuria Musculoskeletal: Reports: No Symptoms Skin: Reports: Rash (resolving ) Neurological: Reports: Other (SEE other page on details. ) Psychiatric: Reports: Other (See other page for details. ) - Patient Data Vitals - Most Recent: Last Vital Signs Temp 97 F 07/26/21 11:00 Pulse 95 07/26/21 11:00 Resp 20 07/26/21 11:00 BP 116/83 07/26/21 11:00 Pulse Ox 95 07/26/21 11:00 Weight - Most Recent: 296 lb 3.2 oz I&O - Last 24 hours: Intake & Output 07/25/21 07/26/21 07/26/21 22:59 06:59 14:59 Intake Total 1062 1588 Output Total 200 Balance 862 1588 Lab Results - Last 24 hrs: Laboratory Results - last 24 hr 07/26/21 07/26/21 07/26/21 Range/Units 07:10 07:10 07:10 WBC 4.76 L (5.00-10.00) 10^3/uL RBC 4.12 L (4.50-6.00) 10^6/uL Hgb 12.6 L (13.0-17.0) g/dL Hct 39.2 L (40.0-52.0) % MCV 95.1 H (82.0-92.0) fL MCH 30.6 (27.0-31.0) pg MCHC 32.1 (32.0-36.0) g/dL RDW 13.3 (11.5-14.5) % Plt Count 171 (150-400) 10^3/uL MPV 10.6 H (7.4-10.4) fL Immature Gran % (Auto) 0.6 (0.0-5.0) % Neut % (Auto) 46.5 L (50.0-70.0) % Lymph % (Auto) 37.2 (20.0-40.0) % [place] % (Auto) 6.1 (2.0-8.0) % Eos % (Auto) 9.2 H (1.0-3.0) % Baso % (Auto) 0.4 (0.0-1.0) % Neut # (Auto) 2.21 L (2.50-7.00) 10^3/uL Lymph # (Auto) 1.77 (1.00-4.00) 10^3/uL [place] # (Auto) 0.29 (0.10-0.80) 10^3/uL Eos # (Auto) 0.44 H (0.10-0.30) 10^3/uL Baso # (Auto) 0.02 (0.00-0.10) 10^3/uL Immature Gran # (Auto) 0.03 (0.00-0.50) 10^3/uL Sodium 138 (136-145) mmol/L Potassium 4.3 (3.5-5.1) mmol/L Chloride 102 (98-107) mmol/L Carbon Dioxide 21.0 (21.0-32.0) mmol/L Anion Gap 19.3 H (5-15) mmol/L BUN 16 (7-18) mg/dL Creatinine 1.15 (0.51-1.17) mg/dL Est Cr Clr Drug Dosing 79.42 mL/min Estimated GFR (MDRD) > 60 mL/min Glucose 124 (70-140) mg/dL Calcium 8.2 L (8.7-10.3) mg/dL Total Bilirubin 1.6 H (0.2-1.0) mg/dL AST 180 H (15-37) U/L ALT 121 H (14-63) U/L Alkaline Phosphatase 72 (46-116) U/L Ammonia 16.0 (11.2-31.7) umol/L Total Protein 8.0 (6.4-8.2) g/dL Albumin 3.61 (3.40-5.00) g/dL SONALI Results - Last 24 hrs: Microbiology 07/25/21 10:00 Aerobic Blood Culture - Preliminary Blood - Venous - Lab Draw NO GROWTH AFTER 1 DAY Anaerobic Blood Culture - Preliminary NO GROWTH AFTER 1 DAY Med Orders - Current: Current Medications Acetaminophen (Acetaminophen 325 Mg Tab) 650 mg PO Q4H PRN PRN Reason: Pain (Mild 1-3)/fever Hydrocodone Bitart/Acetaminophen (Acetaminophen/Hydrocodone 325-5 Mg Tab) 1 - 2 tab PO Q4H PRN PRN Reason: Pain Alprazolam (Alprazolam 0.25 Mg Tab) 0.5 mg PO DAILY PRN PRN Reason: Anxiety Citalopram Hydrobromide (Citalopram 20 Mg Tab) 40 mg PO DAILY [facility] Last Admin: 07/26/21 08:00 Dose: 40 mg Documented by: Haloperidol Lactate (Haloperidol Lactate 5 Mg/Ml Sdv) 1 mg IM Q4H PRN PRN Reason: Agitation Sodium Chloride (Normal Saline) 1,000 mls @ 125 mls/hr IV ASDIRECTED [facility] Last Infusion: 07/25/21 18:07 Dose: 40 mls/hr Documented by: Multivitamins/Minerals (Multivitamins With Minerals/Iron/Folic Acid/Lycopene Tab) 1 tab PO DAILY KSAIA Last Admin: 07/26/21 08:00 Dose: 1 tab Documented by: Sodium Chloride (Sodium Chloride 0.9% 10 Ml Syringe) 10 ml FLUSH Q8HR PRN PRN Reason: keep vein open Tramadol HCl (Tramadol 50 Mg Tab) 50 mg PO Q6H PRN PRN Reason: Pain Triamcinolone Acetonide (Triamcinolone Acetonide 0.1% Crm 15 Gm Tube) 0 gm TOP TID PRN PRN Reason: Rash Discontinued Medications Sodium Chloride (Normal Saline) 1,000 mls @ 999 mls/hr IV .BOLUS ONE Stop: 07/25/21 10:20 Last Admin: 07/25/21 09:55 Dose: 999 mls/hr Documented by: Lorazepam (Lorazepam 2 Mg/Ml Sdv) 1 mg IVPUSH ONETIME ONE Stop: 07/26/21 04:40 Last Admin: 07/26/21 04:45 Dose: 1 mg Documented by: Lorazepam (Lorazepam 2 Mg/Ml Sdv) 1 mg IVPUSH ONETIME ONE Stop: 07/26/21 10:26 Last Admin: 07/26/21 10:33 Dose: 1 mg Documented by: Quetiapine Fumarate (Quetiapine 25 Mg Tab) 50 mg PO BEDTIME ONE Stop: 07/25/21 21:01 Last Admin: 07/25/21 21:33 Dose: Not Given Documented by: Sodium Chloride (Sodium Chloride 0.9% 10 Ml Syringe) 10 ml FLUSH Q8HR PRN PRN Reason: keep vein open - Exam Quality Assessment: Denies: Supplemental Oxygen General: Reports: Alert, Oriented, Cooperative, No Acute Distress Neck: Reports: Supple Lungs: Reports: Clear to Auscultation, Normal Respiratory Effort Cardiovascular: Reports: Regular Rate, Regular Rhythm GI/Abdominal Exam: Normal Bowel Sounds, Soft Back Exam: Denies: CVA Tenderness (R) Extremities: No Pedal Edema Skin: Reports: Rash Neurological: Reports: No New Focal Deficit, Normal Gait, Cranial Nerves Intact Psy/Mental Status: Reports: Alert, Labile Mood
== END 2021-07-26 12:26 | disposition home or self-care (01) ==
LOC: KA.ED 08:50 → KA.MS 10:58
PROVIDERS: ADMIT Physician Assistant Medical; ATTEND Internal Medicine
DX: E86.0 Dehydration (principal); N17.9 Acute kidney failure, unspecified; R79.89 Other specified abnormal findings of blood chemistry; R41.0 Disorientation, unspecified; K21.9 Gastro-esophageal reflux disease without esophagitis; E11.9 Type 2 diabetes mellitus without complications; E66.9 Obesity, unspecified; Z79.899 Other long term (current) drug therapy; Z98.890 Other specified postprocedural states; Z68.38 Body mass index [BMI] 38.0-38.9, adult
CPT/HCPCS: 36415; 70450; 71045; 80053; 81001; 82140; 83605; 85025; 87040; 96374; 96376; 99285-25; A9270-GY; G0378; J2060; J7030

== ENCOUNTER 2022-04-18 10:47 | Day surgery (SDC) | payer BC ==
[2022-04-18] MEDS ORDERED: Propofol 200 MG/20 ML SDV IV ONE (10:48)
[2022-04-18] MEDS ORDERED: Sodium Chloride 0.9% 1,000 ML IV SCH (11:00)
[2022-04-18] MEDS ORDERED: Sodium Chloride 0.9% 10 ML Syringe FLUSH PRN (11:00)
[2022-04-18] MEDS ORDERED: Midazolam 1 MG/ML 2 ML SDV ONE (11:55)
[2022-04-18] MEDS ORDERED: Propofol 200 MG/20 ML SDV ONE ×2 (11:56→12:41)
[2022-04-18 13:52] VITALS: BP 100/66; PULSE 65
== END 2022-04-18 14:10 | disposition home or self-care (01) ==
LOC: KA.SDS 10:47
PROVIDERS: ATTEND Surgery
DX: Z12.11 Encounter for screening for malignant neoplasm of colon (principal); I10 Essential (primary) hypertension; E11.9 Type 2 diabetes mellitus without complications; F41.9 Anxiety disorder, unspecified; F32.A Depression, unspecified; E66.9 Obesity, unspecified; D50.9 Iron deficiency anemia, unspecified; E79.0 Hyperuricemia without signs of inflammatory arthritis and tophaceous disease; G47.30 Sleep apnea, unspecified; D72.829 Elevated white blood cell count, unspecified; M17.11 Unilateral primary osteoarthritis, right knee; Z79.84 Long term (current) use of oral hypoglycemic drugs; Z20.822 Contact with and (suspected) exposure to COVID-19; Z79.891 Long term (current) use of opiate analgesic; Z79.4 Long term (current) use of insulin; Z79.52 Long term (current) use of systemic steroids; Z98.890 Other specified postprocedural states; Z80.0 Family history of malignant neoplasm of digestive organs; Z68.41 Body mass index [BMI] 40.0-44.9, adult
CPT/HCPCS: 82947; J2250; J2704; J7030

== ENCOUNTER 2024-10-29 19:45 | Emergency (ER) | payer BC ==
[2024-10-29] MEDS: Sodium Chloride 0.9% 1,000 ML IV ONE (20:12)
[2024-10-29 20:15] LABS: BASOPHILS ABSOLUTE AUTO 0.03 10^3/uL (0.00-0.10); BASOPHILS PERCENT AUTO 0.4 % (0.0-1.0); EOSINOPHILS ABSOLUTE AUTO 0.11 10^3/uL (0.10-0.30); EOSINOPHILS PERCENT AUTO 1.6 % (1.0-3.0); HEMATOCRIT 40.2 % (40.0-52.0); HEMOGLOBIN 13.9 g/dL (13.0-17.0); IMMATURE GRAN ABSOLUTE AUTO 0.09 10^3/uL (0.00-0.04); IMMATURE GRAN PERCENT AUTO 1.3 % (0.0-0.4); LYMPHOCYTES ABSOLUTE AUTO 1.57 10^3/uL (1.00-4.00); LYMPHOCYTES PERCENT AUTO 22.8 % (20.0-40.0); MEAN CORPUSCULAR HEMOGLOBIN 31.8 pg (27.0-31.0); MEAN CORPUSCULAR HGB CONC 34.6 g/dL (32.0-36.0); MEAN PLATELET VOLUME 10.2 fL (7.4-10.4); MONOCYTES ABSOLUTE AUTO 0.32 10^3/uL (0.10-0.80); MONOCYTES PERCENT AUTO 4.7 % (2.0-8.0); NEUTROPHILS ABSOLUTE AUTO 4.76 10^3/uL (2.50-7.00); NEUTROPHILS PERCENT AUTO 69.2 % (50.0-70.0); PLATELET COUNT,PLT 431 10^3/uL (150-400); RED BLOOD CELL COUNT 4.37 10^6/uL (4.50-6.00); RED CELL DISTRIBUTION WIDTH 12.1 % (11.5-14.5); WHITE BLOOD CELL COUNT,WBC 6.88 10^3/uL (5.00-10.00)
[2024-10-29 20:30] LABS: ALANINE AMINOTRANSFERASE,ALT 36 U/L (14-63); ALBUMIN 3.47 g/dL (3.40-5.00); ALKALINE PHOSPHATASE 97 U/L (46-116); ANION GAP 16.4 mmol/L (5-15); ASPARTATE AMNIOTRANSFERASE,AST 113 U/L (15-37); BILIRUBIN TOTAL 1.4 mg/dL (0.2-1.0); BLOOD UREA NITROGEN,BUN 23 mg/dL (7-18); CALCIUM 9.3 mg/dL (8.7-10.3); CARBON DIOXIDE,CO2 25.4 mmol/L (21.0-32.0); CHLORIDE,CL 98 mmol/L (98-107); CREATININE 2.27 mg/dL (0.51-1.17); GLUCOSE RANDOM 133 mg/dL (70-140); POTASSIUM,K 3.8 mmol/L (3.5-5.1); PROTEIN TOTAL,TP 7.9 g/dL (6.4-8.2); SODIUM,NA 136 mmol/L (136-145)
[2024-10-29 20:31] LABS: ESTIMATED GFR 32 mL/min (>=60)
[2024-10-29 20:46] LABS: CORONAVIRUS COVID-19 NAA NEGATIVE (NEGATIVE); INFLUENZA A NAA NEGATIVE (NEGATIVE); INFLUENZA B NAA NEGATIVE (NEGATIVE)
[2024-10-29] MEDS: Bacitracin/Neomycin/Polymyxin B Oint 0.9 GM U/D Packet TOP ONE (20:49)
[2024-10-29 21:54] VITALS: BP 108/72; PULSE 75
== END 2024-10-29 21:40 | disposition home or self-care (01) ==
LOC: KA.ED 19:45
DX: J20.9 Acute bronchitis, unspecified (principal); E86.0 Dehydration; R11.2 Nausea with vomiting, unspecified; N28.9 Disorder of kidney and ureter, unspecified; I10 Essential (primary) hypertension; E11.9 Type 2 diabetes mellitus without complications; E66.9 Obesity, unspecified; Z68.38 Body mass index [BMI] 38.0-38.9, adult; Z98.84 Bariatric surgery status; Z88.2 Allergy status to sulfonamides; Z88.8 Allergy status to other drugs, medicaments and biological substances; Z79.82 Long term (current) use of aspirin; Z79.84 Long term (current) use of oral hypoglycemic drugs; Z79.899 Other long term (current) drug therapy
CPT/HCPCS: 0240U; 71045; 80053; 84484; 85025; 93010; 96360; 99284; J7030